=== PATIENT | male | born 1935 | race Caucasian/White ===

== ENCOUNTER 2017-03-08 13:04 | Day surgery (SDC) | payer OTHER, MEDICARE ==
[~2017-03-08] VITALS: Ht 176.5 cm; Wt 77.1 kg
[~2017-03-08 13:04] MED LIST: ALEN70TA2 PO; ASPI-435 PO; ASTRAGALUS PO; CIPROFLOXACIN / D5W 400 MG IV SCH; COEN1CAP17 PO; Calcium PO; GABA-113 PO; GLUCTAB54 PO; LACT12CR18 TOP; LACTATED RINGER'S 1000ML 1,000 ML IV SCH; LATA0.009 OPB; Magnesium PO; NAPR-943 PO; PANT40TA PO; Potassium PO; Saw Palmetto PO; Turmeric PO; Vitamin D PO; [UNRECOGNIZED DRUG - CODE] PO; [UNRECOGNIZED DRUG - OTHER]; ambien PO; centrum silver PO; diovan PO; fish oil PO; melatonin PO; nitroglycerin PO
[2017-03-08 14:00] VITALS: BP 148/66; PULSE 85; TEMP 36.4; O2SAT 97; Ht 176.5 cm; Wt 77.1 kg
[2017-03-08] MEDS ORDERED: SULF1TAB92 PO (14:00)
[2017-03-08] MEDS ORDERED: LEVO500T19 PO (14:00)
[2017-03-08] MEDS ORDERED: LIDOCAINE HCL 2% 2 ML VIAL (20MG/ML) ONE (14:44)
[2017-03-08] MEDS ORDERED: FENTANYL CITRATE INJ 50 MCG/1 ML 2 ML VIAL ONE (14:44)
[2017-03-08] MEDS ORDERED: PROPOFOL IV EMULSION 10 MG/ML 20 ML VIAL IV ONE (14:44)
[2017-03-08] MEDS ORDERED: DEXAMETHASONE SOD INJ 4 MG/ML VIAL ONE (14:46)
[2017-03-08] MEDS ORDERED: ONDANSETRON INJ 2 MG/ML 2 ML VIAL ONE (14:46)
--- NOTE | 2017-03-08 15:12 | History & Physical Bridge Note ---
H&P Re-Evaluation Bridge Note: I have examined the patient, reviewed the History & Physical and in the interval since the performance of the History & Physical I have noted the following changes of clinical significance: No changes noted
--- NOTE | 2017-03-08 15:22 | History and Physical ---
History & Physical Date Mar 08, 2017. 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 nonhealing foot ulcers His been maintained on antibiotics History of Present Illness The patient is a 81 year old male with complaints of Past Medical/Surgical History Medical Problems: (1) Melanoma (2) [place] cell cancer (3) Transitional cell carcinoma of bladder Additional History Hepatic Disease: No Endocrine Disorder: No Kidney Disease: No Hypertension: Yes Heart Disease: Yes Bleeding Tendencies: No Infectious Diseases: Yes Allergies Coded Allergies: Tetracycline (Verified Allergy, Unknown, Rash, 03/08/17) Uncoded Allergies: CEPHALSPORINS (Allergy, Mild, Rash, 11/28/13) Home Medications Scheduled Alendronate Sodium (Fosamax), 70 MG PO WK Aspirin (Aspirin 81), 1 TAB PO DAILY Coenzyme Q10 (Ubidecarenone) (Co Q 10), 1 TAB PO DAILY Gabapentin (Neurontin), 600 MG PO TID Xrrimjqtuot-Lqcuosvracq-Xqqzbj (Glucosamine Chondroitin M), 2 TAB PO DAILY Latanoprost 0.005% Oph (Xalatan 0.005% Oph), 1 DROP OPB DAILY Levofloxacin (Levaquin), 1 TAB PO DAILY Naproxen-Esomeprazole Magnesiu (Vimovo), 1 TAB PO DAILY Trimethoprim/Sulfamethoxazole (Bactrim 400MG/80MG), 1 TAB PO Q12H [Astragalus], 500 MG PO DAILY [Magnesium], 133 MG PO DAILY [Potassium], 90 MG PO DAILY [Saw [place]], 320 MG PO DAILY [Turmeric], 450 MG PO DAILY [Vitamin D], 5,000 INTER.UNIT PO DAILY [centrum silver], 1 TAB PO DAILY [diovan], 0.5 TAB PO DAILY [fish oil], 2,000 MG PO DAILY [melatonin], 10 MG PO HS Scheduled PRN Clorazepate Dipotassium (Tranxene T), 3.75 MG PO 1-2 tabs q8h PRN for Anxiety [nitroglycerin], 0.4 MG PO for Chest Pain Physical Examination Skin: warm/dry, + pertinent finding (completely ecchymotic forearms) Eyes: normal inspection, EOMI, sclerae normal Head: normocephalic, atraumatic Neck: supple, no adenopathy, trachea midline Respiratory/Chest: lungs clear, normal breath sounds, no respiratory distress Cardiovascular: regular rate, rhythm, no edema, no murmur Back: normal inspection Extremities: normal inspection, normal range of motion Neurologic/Psych: no motor/sensory deficits, alert, normal reflexes, oriented x 3 Plan of Treatment Cystoscopy, possible TURBT, possible fulguration of bleeding vessels
[2017-03-08] MEDS ORDERED: HYDR-5688 PO (15:37)
[2017-03-08] MEDS ORDERED: [UNRECOGNIZED DRUG - CODE] PO (15:37)
[2017-03-08] MEDS ORDERED: EpHEDrine SULFATE INJ 50 MG/ML AMP IV PRN (15:45)
[2017-03-08] MEDS ORDERED: ATROPINE SULFATE 0.1 MG/ML 5ML SYR IV PRN (15:45)
[2017-03-08] MEDS ORDERED: FENTANYL CITRATE INJ 50 MCG/1 ML 2 ML VIAL IV PRN (15:45)
[2017-03-08] MEDS ORDERED: ONDANSETRON INJ 2 MG/ML 2 ML VIAL IV PRN (15:45)
[2017-03-08] MEDS ORDERED: EpHEDrine SULFATE INJ 50 MG/ML AMP ONE (15:48)
[2017-03-08] MEDS ORDERED: NEOSTIGMINE METHYLSULFATE 5 MG/5 ML SYR ONE (15:48)
[2017-03-08] MEDS ORDERED: GLYCOPYRROLATE INJ 0.2 MG/ML VIAL ONE (15:48)
[2017-03-08] MEDS ORDERED: ROCURONIUM BROMIDE 10 MG/ML 5 ML VIAL IV ONE (15:48)
--- NOTE | 2017-03-08 16:12 | [facility] Operative Report ---
Operative Report Operative Date Mar 08, 2017. Pre-Operative Diagnosis Hematuria, History of Bladder Cancer Post-Operative Diagnosis Bladder Cancer Recurrence Procedure(s) Performed Transurethral Resection Bladder Tumor Surgeon Dr. Sierra Estimated Blood Loss 5ml Findings None papillary bladder tumor around the bladder neck and Compazine area for proximally 6:00 to 2:00. Some adherent clot on the lateral aspect Specimens A. Bladder Tumor Drains none Anesthesia Gen. Complication(s) None Disposition Recovery Room / PACU (stable) Indications Gross hematuria; history of bladder cancer; recent scan suggesting a 2 cm bladder tumor Description of Procedure Wade Smith was identified in the preoperative holding area, appropriate informed consents were reviewed and completed, and the patient was transported to the operating suite. Upon arrival he received appropriate preoperative antibiotics in the form of ciprofloxacin. Adequate general anesthesia was achieved, and the patient was placed in dorsal lithotomy position where he was sterilely prepped and draped in standard fashion. 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 I was able to gently dilate this with a hemostat. Scope subsequent passed without difficulty. Full inspection of the urethra revealed no evidence of stricture disease. Prostate was small in size. Inspection of the bladder revealed a clot within the dependent portion of the bladder this was easily irrigated out. I performed a full inspection with both 30 and 70 lenses. With 70 lenses very 0 identified papillary tumors arising from the bladder neck encompassing approximately one third of the circumference the bladder neck extending from 7:00p-6:00 to approximately 2:00. There was adherent clot on the most lateral aspect of this. I expect that this clot was seen on the CT scan that suggested tumor, as remaining portion of the tumor was not particularly protuberant into the bladder. Following my inspection I exchanged the visual obturator for resecting loop and sequentially resected the tumor beginning at the lateral most aspect concluding with the posterior aspect. After collecting all of the specimen passing off the table, I exchanged with 30 lens for 70 lens and reinspected. A third an adequate resection at that time with no persistent tumor remaining. I confirmed excellent hemostasis before withdrawing the scope and emptying the bladder. Patient was extubated and taken to the PACU in stable condition. There were no complications. I attest to the content of the Intraoperative Record and any orders documented therein. Any exceptions are noted below.
[2017-03-08] MEDS ORDERED: SODIUM CHLORIDE 0.9% 1000ML 1,000 ML IV SCH (16:14)
--- NOTE | 2017-03-08 16:14 | Discharge Instructions ---
Discharge Instructions Date of Service Mar 08, 2017. Admission Reason for Admission: Hematuria, Bladder Cancer Discharge Discharge Diagnosis / Problem: Bladder cancer, hematuria Discharge Goals Goal(s): Decrease discomfort, Improve function, Increase independence, Improve disease control, Prevent Disease Progression Activity Recommendations Activity Limitations: resume your previous activity Lifting Limitations: none Exercise/Sports Limitations: none May Resume Sexual Activity: when tolerated Shower/Bathe: no limitations Driving or Machine Use: resume 1 day after discharge . Instructions / Follow-Up Instructions / Follow-Up Dr. Sierra's office will contact you to schedule your follow up. Discharge Diet Recommended Diet: Regular Diet Procedures Procedures Performed: Transurethral Resection Bladder Tumor Pending Studies Studies pending at discharge: no Medical Emergencies . Who to Call and When: Medical Emergencies: If at any time you feel your situation is an emergency, please call 911 immediately. . Non-Emergent Contact Non-Emergency issues call your: Urologist Call Non-Emergent contact if: you have a fever, temperature is above 101.5, your pain is not controlled, your pain is worsening . . "Provider Documentation" section prepared by Nathanael Faye. . VTE Core Measure Inpt VTE Proph given/why not?: Treatment not indicated
[2017-03-08] MEDS ORDERED: ACETAMINOPHEN 325 MG TAB PO PRN (16:15)
[2017-03-08] MEDS ORDERED: HYDROCODONE/ACETAMOPHEN 5/325MG TAB PO PRN ×2 (16:15)
[2017-03-08] MEDS ORDERED: PHENAZOPYRIDINE HCL 200 MG TAB PO PRN (16:15)
--- NOTE | 2017-03-08 16:40 | Anesthesiology Progress Note ---
Anesthesia Post Op Note Date & Time Mar 08, 2017 at 16:40 Vital Signs Pain Intensity: 0 Vital Signs Past 12 Hours Date Time Temp Pulse Resp B/P (MAP) Pulse Ox O2 Delivery O2 Flow Rate FiO2 03/08/17 16:35 70 18 150/76 97 Room Air 03/08/17 16:25 69 14 145/71 100 Oxymask 8 03/08/17 16:15 76 17 149/73 100 Oxymask 03/08/17 16:08 36.4 74 17 139/64 100 Oxymask 10 03/08/17 14:00 36.4 85 20 148/66 (93) 97 Room Air Notes Mental Status: alert / awake / arousable, participated in evaluation Pt Amnestic to Procedure: Yes Nausea / Vomiting: adequately controlled Pain: adequately controlled Airway Patency, RR, SpO2: stable & adequate BP & HR: stable & adequate Hydration State: stable & adequate Anesthetic Complications: no major complications apparent
[2017-03-08 16:55] VITALS: BP 165/71; PULSE 65; TEMP 36.3; O2SAT 98
[2017-03-08 17:25] VITALS: BP 144/71; PULSE 68; TEMP 36.3; O2SAT 98
== END 2017-03-08 17:39 | disposition home or self-care (01) ==
LOC: C.ACU 13:04
PROVIDERS: ATTEND Urology
DX: C67.5 Malignant neoplasm of bladder neck (principal); R31.9 Hematuria, unspecified

== ENCOUNTER 2019-05-17 08:35 | Observation (INO) ==
--- NOTE | 2019-05-15 16:07 | PAT Medication Instructions ---
Medication Instructions Date of Service May 15, 2019 Home Medications alendronate 70 mg PO WK aspirin 81 mg PO QAM cholecalciferol (vitamin D3) [Vitamin D3] 5,000 unit PO QAM coenzyme Q10 [CoQ-10] 100 mg PO QAM gabapentin [Neurontin] 300 mg PO TID latanoprost 1 drp OPB HS melatonin 10 mg PO HS mbsbaweb-yqd-KJ-lycopen-lutein [Centrum Silver] 1 tab PO DAILY naproxen 500 mg PO QAM omega 8-zuo-lcy-fish oil [Fish Oil] 1 cap PO BID saw palmetto 160 mg PO BID turmeric-turmeric root extract 1 cap PO QAM valsartan-hydrochlorothiazide [Diovan HCT] 0.5 tab PO QAM ASK your surgeon for instructions naproxen 500 mg PO QAM ASK your prescriber and surgeon aspirin 81 mg PO QAM alendronate 70 mg PO WK STOP taking 2 weeks before surgery (or as soon as possible if surgery is within 2 weeks) coenzyme Q10 [CoQ-10] 100 mg PO QAM omega 0-fxw-zjb-fish oil [Fish Oil] 1 cap PO BID saw palmetto 160 mg PO BID turmeric-turmeric root extract 1 cap PO QAM DO NOT take the morning of surgery cholecalciferol (vitamin D3) [Vitamin D3] 5,000 unit PO QAM [Centrum Silver] 1 tab PO DAILY valsartan-hydrochlorothiazide [Diovan HCT] 0.5 tab PO QAM Take morning of surgery With a small sip of water, OTHERWISE NOTHING TO EAT OR DRINK AFTER MIDNIGHT: gabapentin [Neurontin] 300 mg PO TID Take evening before surgery gabapentin [Neurontin] 300 mg PO TID latanoprost 1 drp OPB HS melatonin 10 mg PO HS Other Notes If you have any questions please call us at [phone] or [phone] or [phone] or [phone]
--- NOTE | 2019-05-16 12:46 | Anesthesiology Consultation ---
Date of Service May 16, 2019 Assessment & Plan (1) Encounter for pre-operative examination: - PCP: 05/02/19: recommend continued followup with wound care for MRSA/wound care. Discussed ETOH cessation or 1 drink nightly. "Patient is cleared for upcom ing surgery." - Hyponatremia/hypokalemia during recent [facility] ER visit. Recheck 05/16/19 with slight improvement with Na [address] Nance made aware. - ASA instructions per surgeon/prescriber (per patient, not advised to discontinue prior to surgery and surgery scheduled tomorrow 05/17/19*) Chart Review Chart Review: Acceptable Risk for Surgery (pending evaluation AM DOS) and Patient seen in Pre Admission Testing Teaching & Discussion Pre-Anesthesia Teaching/Discussion Notes: Instructed NPO after midnight before surgery,except medications with 15 cc of water. Medication instructions provided according to the PAT guidelines. History Surgery Operation Date: 05/17/19 10:25 Proposed Procedures p Transurethral Resection Bladder Tumor, With or Without Multiple Cup Biopsies of the Bladder - Nathanael Sierra MD Height/Weight Height: 5 ft 9.5 in Weight: 68.5 kg Allergies Allergy/AdvReac Type Severity Reaction Status Date / Time Cephalosporins Allergy Mild RASH Verified 05/14/19 09:47 tetracycline Allergy Mild Rash Verified 05/14/19 09:47 Medications Home Medications Medication Instructions Recorded Confirmed Last Taken alendronate 70 mg PO WK 05/10/19 05/14/19 Unknown aspirin 81 mg PO QAM 05/10/19 05/14/19 05/10/19 cholecalciferol (vitamin D3) 5,000 unit PO QAM 05/10/19 05/14/19 05/10/19 [Vitamin D3] coenzyme Q10 [CoQ-10] 100 mg PO QAM 05/10/19 05/14/19 05/10/19 gabapentin [Neurontin] 300 mg PO TID 05/10/19 05/14/19 05/10/19 latanoprost 1 drp OPB HS 05/10/19 05/14/19 05/09/19 melatonin 10 mg PO HS 05/10/19 05/14/19 05/09/19 shfmrtkr-bjn-VL-lycopen-lutein 1 tab PO DAILY 05/10/19 05/14/19 05/10/19 [Centrum Silver] naproxen 500 mg PO QAM 05/10/19 05/14/19 05/10/19 omega 6-tdg-zrm-fish oil [Fish Oil] 1 cap PO BID 05/10/19 05/14/19 05/10/19 saw palmetto 160 mg PO BID 05/10/19 05/14/19 05/10/19 turmeric-turmeric root extract 1 cap PO QAM 05/10/19 05/14/19 05/10/19 valsartan-hydrochlorothiazide 0.5 tab PO QAM 05/10/19 05/14/19 05/10/19 [Diovan HCT] Past Medical History Medical History HTN (hypertension) Melanoma Transitional cell carcinoma of bladder (~04/10/09) Anemia chronic; no known hx of blood transfusions per patient BPH (benign prostatic hyperplasia) Chronic back pain GERD (gastroesophageal reflux disease) controlled [place] (hard of hearing) Hematuria Osteoarthritis Peripheral neuropathy Risk for falls 2/2 chronic balance issues Transient ischemic attack (TIA) 2019 Wounds, multiple multiple wounds related to mechanical falls 2/2 poor balance- following with wound clinic, + MRSA LUE wound (infection control made aware) Exercise / Class Metabolic Activity III < 4 Walking/Shop/Light housework (uses walker PRN) Past Family History Family History Other Family history non-contributory Past Surgical History Surgical History History of biopsy of bladder History of bladder surgery TURBT: 03/08/17: LMA# 5.0 at [facility] History of cataract surgery RT/LEFT History of colonoscopy History of cystoscopy MULTIPLE History of esophagogastroduodenoscopy (EGD) History of tonsillectomy and adenoidectomy History of tooth extraction Hx of knee surgery LEFT Past Anesthesia History No Hx of Anesthesia Complications and No Family Hx of Anesthesia Complications History of PONV No Hx of PONV and No Hx of Motion Sickness Social History Smoking Status: Former smoker tobacco type: cigarettes Do You Dip or Chew Tobacco: No Smoking End Date: QUIT 40 YEARS AGO Hx Alcohol Use: Yes Alcohol type: beer, wine and hard liquor alcohol intake frequency: 3 or more drinks per day Alcohol Intake Frequency Comment: 2-3 DRINKS (cocktail/mixed drink) DAILY BEFORE DINNER Hx Substance Use: No substance use type: does not use Review of Systems Reflux controlled. Patient denies chest pain, shortness of breath, cough, wheezing, palpitations. Physical Exam Vital Signs VITALS BP 137/67 P 65 TEMP 97.7 SP02 100%RA RESP 18 PHYSICAL Decreased cervical extension due to cervicalgia/arthritis. Full TMJ range of motion. TMD 3.5 finger breaths Mallampati Score 4 Dentition: partial upper/lower dentures Lungs: clear throughout to auscultation Cardiac: regular rate and rhythm, no murmurs noted Spine: normal Carotid arteries: negative bruit Extremities: no edema Testing Laboratory Results 05/16/19 14:25 05/12/19 WBC 5.70 H/H 9.4/27.7 PLT 196 05/10/19 UA 2+ bacteria (urine culture with no growth) Electrocardiogram Date: 05/16/19 NSR at 67bpm. Low voltage QRS. *unconfirmed report* Chest X-Ray Date: 05/16/19 Findings: + NAD
[2019-05-16 14:57] LABS: BUN Creatinine Ratio 15.3 (10-20); Calcium 8.6 mg/dl (8.5-10.1); Creatinine Clr Calc Pharmacy 49.4 ml/min; Est GFR (African American) 73.8; Est GFR (Non-African American) 63.7; Potassium 3.2 mmol/L (3.5-5.1)
--- NOTE | 2019-05-16 15:01 | XRay Report ---
XR chest Pre-admission PA/Lat CLINICAL HISTORY: 83 years-old Male presenting with preoperative assessment. TECHNIQUE: PA and lateral views of the chest were obtained. COMPARISON: PET/CT from 01/27/2015. FINDINGS: Cardiomediastinal silhouette normal. Lungs and pleural spaces clear. Prominent skin folds over the le ft lung. Degenerative changes of the thoracic spine. Partially visualized lumbar fusion hardware. Upp er abdomen normal. IMPRESSION: 1. No acute cardiopulmonary disease. Electronically signed by: Ben Siddiqi M.D. 05/16/2019 3:00 PM
[~2019-05-17 08:35] MED LIST changes: -ALEN70TA2 PO; -ASPI-435 PO; -ASTRAGALUS PO; -CIPROFLOXACIN / D5W 400 MG IV SCH; +CIPROFLOXACIN 400 MG/200 ML BAG IV SCH; -COEN1CAP17 PO; -Calcium PO; -GABA-113 PO; -GLUCTAB54 PO; -LACT12CR18 TOP; -LACTATED RINGER'S 1000ML 1,000 ML IV SCH; -LATA0.009 OPB; +LR 15ML/HR IV SCH; -Magnesium PO; -NAPR-943 PO; -PANT40TA PO; -Potassium PO; -Saw Palmetto PO; -Turmeric PO; -Vitamin D PO; -[UNRECOGNIZED DRUG - CODE] PO; -[UNRECOGNIZED DRUG - OTHER]; -ambien PO; +cefTRIAXone SODIUM 1,000 MG in DEXTROSE 5% 50 ML IV SCH; -centrum silver PO; -diovan PO; -fish oil PO; -melatonin PO; -nitroglycerin PO
[2019-05-17] MEDS ORDERED: CIPROFLOXACIN 400MG / 200ML D5W IV ONE (09:59)
--- NOTE | 2019-05-17 10:01 | History & Physical Bridge Note ---
Date of Service May 17, 2019 History & Physical Bridge Note I have examined the patient, reviewed the History & Physical and in the interval since the performance of the History & Physical I have noted the following changes of clinical significance: no changes noted
[2019-05-17] MEDS ORDERED: PROPOFOL IV EMULSION 10 MG/ML 20 ML VIAL IV ONE (10:27)
[2019-05-17] MEDS ORDERED: LIDOCAINE HCL 2% 2 ML VIAL/AMP(20MG/ML) INFIL ONE (10:27)
[2019-05-17] MEDS ORDERED: fentaNYL citrate 100 MCG/2 ML VIAL ONE ×2 (10:28→11:22)
[2019-05-17] MEDS ORDERED: ONDANSETRON INJ 2 MG/ML 2 ML VIAL IV PRN ×2 (10:37→13:27)
[2019-05-17] MEDS ORDERED: ATROPINE SULFATE 0.1 MG/ML 10ML SYR IV PRN (10:37)
[2019-05-17] MEDS ORDERED: ePHEDrine sulfate 50 MG/ML AMP IV PRN (10:37)
[2019-05-17] MEDS ORDERED: ONDANSETRON INJ 2 MG/ML 2 ML VIAL ONE (10:45)
[2019-05-17] MEDS: fentaNYL citrate 100 MCG/2 ML VIAL IV PRN ×3 (12:23→12:36)
--- NOTE | 2019-05-17 12:37 | Operative Report ---
PG Post Operative Report Pre & Post Diagnosis Operation Date: 05/17/19 10:25 Pre-Op Diagnosis: Bladder Tumors Post-Op Diagnosis: Bladder Tumors I identified the patient and participated in the time-out.: Yes Procedure Operation Date: 05/17/19 10:25 Actual Procedures p Transurethral Resection Bladder Tumor, Meatal Dilation(Not Applicable) - Nathanael Sierra MD Surgeon Chele Sierra MD Clay Worker none Estimated Blood Loss 10 Findings Consistent with Post-Op Diagnosis Specimens Bladder tumor Description of Procedure The patient was identified in the preopertive holding area, appropriate informed consents were reviewed and completed and the patient was transferred to the operative suite. Upon arrival, appropriate antibiotics and anesthesia were administered and the patient was placed in dorsal lithotomy position and prepped and draped in sterile fashion. To begin the case I attempted to pass a 27 Belgian resectoscope but his meatus would not accommodate this. I then performed a meatal dilation utilizing male urethral sounds to 28 Belgian. The scope subsequently passed without difficulty and inspection of his urethra revealed no abnormalities. He has moderately enlarged prostate. There was a notable tumor arising from the bladder neck and obstructing the lumen of the bladder neck upon entering the bladder. There was also clot within the bladder and significant blood. After irrigating the clot out of the bladder and clearing the urine, I was able to fully inspect. He has a very large tumor arising from the left anterior aspect of the bladder neck and obstructing the bladder neck itself. This extends onto the left lateral wall, covering the left UO and a significant portion of the left bladder. He additionally has several isolated tumors on the right side of his bladder and posterior wall. Following this inspection, I passed a resecting elementchoosing a loop electrode. I subsequently resected all visible tumor. The tumor arising from the left anterior lateral wall was resected flush to the normal contour of the bladder wall, however I do not suspect I have entirely resected this tumor. There is still necrotic appearing tumor at the base of the resection, but given the depth of resection I felt that it was unsafe to extend this resection further. In total, 8 to 10 cm of bladder surface was covered with tumor and treated today. I obtained meticulous hemostasis and irrigated all bladder tumor chips out prior to concluding the case. I did place a 22 Belgian Lau catheter and inflate the balloon with 10 cc of sterile water. He was subsequently extubated and taken to the PACU in stable condition. There were no complications. I attest to the content of the Intraoperative Record and any orders documented therein. Any exceptions are noted below.
--- NOTE | 2019-05-17 12:43 | Anesthesiology Progress Note ---
Date of Service May 17, 2019 Anesthesia Post Procedure Vital Signs Vital Signs: Temp Pulse Pulse Resp BP BP Pulse Ox 05/17/19 12:40 73 22 127/56 L 100 05/17/19 12:30 77 17 114/63 100 05/17/19 12:20 80 19 141/61 H 100 05/17/19 12:10 83 12 147/77 H 100 05/17/19 12:04 97.2 F L 79 16 135/73 100 05/17/19 09:23 98.2 F 63 16 132/71 99 Pain Intensity Neck: Pain Intensity: 2 Penis: Pain Intensity: 5 Transfer of Care Handoff Completed per policy Notes Mental Status: alert / awake / arousable and participated in evaluation Patient Amnestic to Procedure: Yes Nausea / Vomiting: adequately controlled Pain: adequately controlled Airway Patency, RR, SpO2: stable & adequate BP & HR: stable & adequate Hydration State: stable & adequate Anesthetic Complications: no major complications apparent and Pt Satisfied with anesthetic care
[2019-05-17] MEDS ORDERED: HYDROCODONE/ACETAMOPHEN 5/325MG TAB PO PRN (13:27)
[2019-05-17] MEDS ORDERED: ACETAMINOPHEN 325 MG TAB PO PRN (13:27)
[2019-05-17 13:53] LABS: Basophils # (auto) 0.02 K/uL (0-0.2); Basophils % (auto) 0.3 %; Eosinophils # (auto) 0.26 K/uL (0-0.5); Eosinophils % (auto) 4.3 %; Hematocrit (blood only) 28.9 % (42-52); Hemoglobin 10.4 g/dL (14.0-18.0); Immature Granulocytes # (auto) 0.02 K/uL (0.00-0.02); Immature Granulocytes % (auto) 0.3 %; Lymphocytes # (auto) 0.58 K/uL (1.2-3.4); Lymphocytes % (auto) 9.5 %; Mean Corpuscular Hemoglobin 35.5 pg (25-34); Mean Corpuscular Volume 98.6 fL (80-100); Mean Platelet Volume 8.4 fL (7.4-10.4); Monocytes # (auto) 0.37 K/uL (0.11-0.59); Monocytes % (auto) 6.1 %; Neutrophils # (auto) 4.85 K/uL (1.4-6.5); Neutrophils % (auto) 79.5 %; Platelet Count 189 K/uL (130-400); RDW Coefficient of Variation 13.8 % (11.5-14.5); RDW Standard Deviation 49.5 fL (36.4-46.3); Red Blood Count 2.93 M/uL (4.7-6.1)
[2019-05-17] MEDS: LACTATED RINGER'S 1,000 ML IV SCH (13:57)
[2019-05-17] MEDS: HYDROCODONE/ACETAMOPHEN 5/325MG TAB PO PRN ×2 (13:59→22:35)
[2019-05-17 14:13] LABS: BUN Creatinine Ratio 14.5 (10-20); Calcium 8.2 mg/dl (8.5-10.1); Creatinine Clr Calc Pharmacy 49.7 ml/min; Est GFR (African American) 74.7; Est GFR (Non-African American) 64.4
[2019-05-17] MEDS: GABAPENTIN 300 MG CAP PO SCH ×2 (14:38→22:35)
[2019-05-17 15:11] VITALS: PULSE 75; O2SAT 99
[2019-05-17] MEDS ORDERED: IOVERSOL 100ml IV PRN (15:51)
--- NOTE | 2019-05-17 16:04 | CT Scan Report ---
CT abd pelvis IV con only CLINICAL HISTORY: Bladder cancer - r/o met disease COMPARISON STUDY: PET CT scan performed January 2015 TECHNIQUE: The patient was scanned in a dynamic helical fashion during intravenous administration of 95 cc of Optiray 320. A dose lowering technique was utilized adhering to the principles of ALARA. CT DOSE: 715.53 mGycm FINDINGS: Lower chest: There are left basilar airspace opacities, likely atelectatic. Liver: There is a 4 mm right lobe hypodensity, similar to the preceding study and likely representing a cyst. Gallbladder: Cholelithiasis Spleen: Normal in size and attenuation. Pancreas: Unremarkable. Adrenal glands: Unremarkable. Kidneys: There are multiple bilateral hypodense renal lesions consistent with cysts. The largest on t he left which measures 39 mm minimally complex containing thin calcific septations inferiorly. Bowel: There are no transition zones to indicate bowel obstruction. The appendix appears normal. Ther e is colonic diverticulosis. No acute peridiverticular inflammatory changes are visualized. Peritoneum: There is no intraperitoneal free air or abdominal ascites. Vasculature: The abdominal aorta is normal in course and caliber. Adenopathy: None. Pelvic viscera: There is a joint Lau catheter. The prostate is mildly enlarged. There is a thick wa lled bladder. Skeletal structures: There are postsurgical changes present within the spine. There are scattered scl erotic lesions, similar to the prior 2014 study, and therefore likely representing benign bone island s IMPRESSION: 1. No evidence of metastatic disease 2. No evidence of bowel obstruction. No evidence of free air 3. Cholelithiasis 4. Bladder wall thickening Electronically signed by: Hira Abbott M.D. 05/17/2019 4:02 PM
[2019-05-17] MEDS: [UNRECOGNIZED DRUG - REMARK] SCH (17:30)
[2019-05-17] MEDS ORDERED: LATANOPROST 0.005% OP SOLN 2.5 ML BTL OPB SCH (21:00)
[2019-05-18] MEDS: [UNRECOGNIZED DRUG - REMARK] SCH ×2 (00:09→07:38)
[2019-05-18] MEDS: CIPROFLOXACIN 500 MG TAB PO SCH ×2 (00:41→07:54)
[2019-05-18] MEDS: LACTATED RINGER'S 1,000 ML IV SCH (04:11)
[2019-05-18] MEDS: HYDROCODONE/ACETAMOPHEN 5/325MG TAB PO PRN (05:35)
[2019-05-18 06:13] LABS: Basophils # (auto) 0.02 K/uL (0-0.2); Basophils % (auto) 0.2 %; Eosinophils # (auto) 0.46 K/uL (0-0.5); Eosinophils % (auto) 5.3 %; Hematocrit (blood only) 24.9 % (42-52); Immature Granulocytes # (auto) 0.01 K/uL (0.00-0.02); Immature Granulocytes % (auto) 0.1 %; Lymphocytes # (auto) 0.72 K/uL (1.2-3.4); Lymphocytes % (auto) 8.3 %; Mean Corpuscular Hemoglobin 36.3 pg (25-34); Mean Corpuscular Hgb Conc 36.1 g/dL (32-36); Mean Corpuscular Volume 100.4 fL (80-100); Mean Platelet Volume 8.2 fL (7.4-10.4); Monocytes # (auto) 0.46 K/uL (0.11-0.59); Monocytes % (auto) 5.3 %; Neutrophils # (auto) 6.99 K/uL (1.4-6.5); Neutrophils % (auto) 80.8 %; Platelet Count 150 K/uL (130-400); RDW Coefficient of Variation 14.1 % (11.5-14.5); RDW Standard Deviation 51.8 fL (36.4-46.3); Red Blood Count 2.48 M/uL (4.7-6.1); White Blood Count 8.66 K/uL (4.8-10.8)
[2019-05-18 06:53] LABS: BUN Creatinine Ratio 13.7 (10-20); Calcium 7.7 mg/dl (8.5-10.1); Creatinine Clr Calc Pharmacy 54.3 ml/min; Est GFR (African American) 83.2; Est GFR (Non-African American) 71.8; Potassium 3.1 mmol/L (3.5-5.1)
--- NOTE | 2019-05-18 08:18 | Urology Progress Note ---
Date of Service May 18, 2019 Assessment & Plan (1) Bladder cancer: 83yo F POD #1 s/p TURBT with Dr. Sierra Pt progressing as anticipated. Continue regular diet, ambulate as tolerated. Use of IS reviewed. Will continue to monitor hematuria and BP. Subjective 83yo M POD #[address] Sierra Denies pain, slept well through the night. No nausea/vomiting. States he has not been OOB yet. Black draining spear red with small clots- has not required irrigation. H/H with mild drop as expected. BP soft, Valsartan held this AM. Wound care at bedside yesterday to dress skin tears after pt suffered fall day before procedure. Review of Systems Review of Systems: All systems reviewed & are unremarkable except as noted in HPI & below Physical Exam Constitutional: no acute distress and not ill appearing Eyes: no nystagmus ENMT: Ears: no hearing impairment Neck: trachea midline Respiratory: no respiratory distress and no cough Cardiovascular: Vessels: no JVD Chest (Breasts): Chest: normal inspection of chest Gastrointestinal (Abdomen): Inspection/Auscultation: abdomen not distended and no abdominal edema Percussion/Palpation: abdomen soft; abdomen nontender Musculoskeletal: Head/Neck/Chest: normocephalic and head atraumatic Skin: no rashes, warm and dry Neurologic: awake; not confused and not obtunded Psychiatric: Orientation: alert and oriented x 3 Eye Contact: good eye contact Affect: no depressed affect Genitourinary: no CVA tenderness black draining clear yellow Lymphatic: no lymphadenopathy and no lymphedema Results & Data Vital Signs (Past 12 Hours) Vital Signs Temp Pulse Pulse Resp BP Pulse Ox 05/18/19 07:50 36.4 C L 75 15 102/57 L 99 05/18/19 02:59 36.5 C 75 16 111/65 99 05/17/19 23:03 37.0 C 75 16 96/54 L 99 PG Care Time/CCT Total # of Minutes Spent Total Time Spent with Patient: Total time spent is greater than 50% in coordination of care (as documented) at patient's floor/unit and/or counseling patient: (1) Bladder cancer Bladder location: unspecified site Qualified Code(s): C67.9 - Malignant neoplasm of bladder, unspecified
[2019-05-18] MEDS: GABAPENTIN 300 MG CAP PO SCH ×2 (08:40→13:05)
[2019-05-18] MEDS ORDERED: VALSARTAN 80 MG TAB PO SCH (09:00)
[2019-05-18] MEDS ORDERED: hydroCHLOROthiazide 25 MG TAB PO SCH (09:00)
--- NOTE | 2019-05-18 11:34 | Urology Progress Note ---
Date of Service May 18, 2019 Assessment & Plan (1) Bladder cancer: Pt remains to be very drowsy, arousable but quickly falls back to sleep without verbal stimulation. PT/OT ordered per case management recommendations. Pt may need to consider discharge to [facility]. Await evaluation. Please hold all antihypertensives due to soft BPs. Will keep patient overnight tonight. Dr. Sierra to see patient later this afternoon. Supervising Physician Co-Signing Physician Notes Doing ok today still with some confusion urine bloody Lengthy discussion with the patient's son as well as case management - his home situation is sub-optimal, but prolonged hospitalization is likewise not without risk given EtOH use, etc - we have settled on D/c home this afternoon - son and grandson will be with him - home care arranged for tomorrow - removal of black catheter now - this plan has been communicated to CM as well Subjective Rechecked pt later this AM. Sleeping in chair next to bed, easily arousable but then quickly falls back asleep. Does not appear that he has eaten any of his breakfast. Black draining spear red, adequate amounts. Pt denies any pain or nausea. Physical Exam Physical Exam: drowsy black draining spear red RRR Results & Data Vital Signs (Past 12 Hours) Vital Signs Temp Pulse Pulse Resp BP Pulse Ox 05/18/19 07:50 36.4 C L 75 15 102/57 L 99 05/18/19 02:59 36.5 C 75 16 111/65 99 PG Care Time/CCT Total # of Minutes Spent Total Time Spent with Patient: Total time spent is greater than 50% in coordination of care (as documented) at patient's floor/unit and/or counseling patient: (1) Bladder cancer Bladder location: unspecified site Qualified Code(s): C67.9 - Malignant neoplasm of bladder, unspecified
[2019-05-18] MEDS ORDERED: LORazepam 1 MG/2 ML VIAL IV PRN ×2 (12:09→13:08)
[2019-05-18] MEDS ORDERED: Nursing to Pharmacy Communication ONE ×2 (12:11→14:01)
[2019-05-18] MEDS ORDERED: LORazepam 1 MG TAB PO PRN ×2 (12:20→13:08)
[2019-05-18] MEDS ORDERED: MULTI-VITAMIN INFUSION 10 ML, THIAMINE HCL 100 MG, FOLIC ACID 1 MG in SODIUM CHLORIDE 0... IV ONE (12:45)
[2019-05-18] MEDS ORDERED: GABAPENTIN 300 MG CAP PO ONE (13:15)
--- NOTE | 2019-05-18 13:21 | Hospitalist Consultation ---
Date of Consultation May 18, 2019 Assessment & Plan (1) Confusion: Apparently this was a concern earlier today, but no confusion during my discussion or for nursing Possibly with poor anesthesia clearance vs groggy due to being awakened Now WNL PT/OT pending HHN is being set up as well (2) Bladder cancer: s/p TURP 05/[address] Sierra Hb 9.0 (3) Hypokalemia: Noted during admission Replace and monitor (4) HTN (hypertension): BP low normal, monitor (5) Alcohol use: As noted Pt takes gabapentin 300mg TID, does not miss dosing per pt D/W pharmacy and they feel that pt would not need any sort of large loading dose given baseline use, but did rec for an additional 300mg x1 Banana bag started earlier AM thiamine, folate AWSS protocol Per urology, family stated that pt does not do well in hospital in the past (6) DVT prophylaxis: As per urology History of Present Illness Attending Physician: Chele Sierra MD History of Present Illness 83 y/o M who was admitted on 05/18 s/p TURP with Dr. Sierra. Consult was called for pt being confused this AM. Per CHAIRMAN AND [employer]IE[employer] EXECUTIVE OFFICER notes, pt was drowsy this AM and difficulty to arouse. He did speak with her once aroused but fell back asleep quickly. His BP is also low. Per nursing, there is concern from urology about pt's hx of alcohol use. Pt states he is doing well post-op. Tolerating PO without issue. Pt denies fever, SOB, chest pain, abd pain, n/v/c/d, LE swelling or pain. Nursing states pt has had no s/sx of alcohol withdrawal. Pt states he generally has 2-3 bourbon drinks/Manhattans a night, most nights of the week. He states he does have nights during which he does not have any alcohol and has no issues. Denies hx of withdrawal seizures or other sx. He states he had a drink the night before his surgery. DOS 05/17/19. Pt takes gabapentin 300mg TID at baseline for nerve pain. He states he has his medications in a pill box and never misses doses. Allergies Allergy/AdvReac Type Severity Reaction Status Date / Time Cephalosporins Allergy Mild RASH Verified 05/17/19 09:15 tetracycline Allergy Mild Rash Verified 05/17/19 09:15 Home Medications Home Medications Medication Instructions Recorded Confirmed Type aspirin 81 mg PO QAM 05/10/19 05/17/19 History cholecalciferol (vitamin D3) 5,000 unit PO QAM 05/10/19 05/17/19 History [Vitamin D3] coenzyme Q10 [CoQ-10] 100 mg PO QAM 05/10/19 05/17/19 History gabapentin [Neurontin] 300 mg PO TID 05/10/19 05/17/19 History latanoprost 1 drp OPB HS 05/10/19 05/17/19 History melatonin 10 mg PO HS 05/10/19 05/17/19 History fnyjzbad-zwx-OF-lycopen-lutein 1 tab PO DAILY 05/10/19 05/17/19 History [Centrum Silver] naproxen 500 mg PO QAM 05/10/19 05/17/19 History omega 4-nxg-nej-fish oil [Fish Oil] 1 cap PO BID 05/10/19 05/17/19 History turmeric-turmeric root extract 1 cap PO QAM 05/10/19 05/17/19 History valsartan-hydrochlorothiazide 0.5 tab PO QAM 05/10/19 05/17/19 History [Diovan HCT] Patient History Medical History HTN (hypertension) Melanoma Transitional cell carcinoma of bladder (~04/10/09) Anemia chronic; no known hx of blood transfusions per patient BPH (benign prostatic hyperplasia) Chronic back pain GERD (gastroesophageal reflux disease) controlled SQUAXIN (hard of hearing) Hematuria Osteoarthritis Peripheral neuropathy Risk for falls 2/2 chronic balance issues Transient ischemic attack (TIA) 2019 Wounds, multiple multiple wounds related to mechanical falls 2/2 poor balance- following with wound clinic, + MRSA LUE wound (infection control made aware) Surgical History History of biopsy of bladder History of cataract surgery RT/LEFT History of colonoscopy History of cystoscopy MULTIPLE History of esophagogastroduodenoscopy (EGD) History of tonsillectomy and adenoidectomy History of tooth extraction Hx of knee surgery LEFT History of bladder surgery TURBT: 03/08/17: LMA# 5.0 at [facility] Family History Other Family history non-contributory Social History Preferred Language: Welsh Communication Ability: Effective Vise Hand Required: No Beliefs That Will Affect Care: None marital status: / Current Living Situation: Family Current Living Situation Comment: GRANDSON LIVES WITH PT Other Information That Helps Us Care for You: No Feels Safe at Home: Yes Safety Concerns: Feels Safe At This Time Smoking Status: Former smoker Tobacco Type: cigarettes ; Do You Dip or Chew Tobacco: No ; Smoking End Date: QUIT 40 YEARS AGO ; Second Hand Exposure: No ; Tobacco Cessation Education Requested by Patient: No Hx Alcohol Use: Yes Alcohol type: beer, wine and hard liquor Hx Substance Use: No Review of Systems Review of Systems: Pertinent positives and negatives reviewed in HPI--all others negative Physical Exam Constitutional: WD/WN, vitals as above Eyes: normal visual wilkinson by confrontation and + anicteric sclerae Neck: normal visual inspection and trachea midline Respiratory: normal respiratory effort, lungs clear to auscultation Cardiovascular: Rate/Rhythm: regular rate and regular rhythm Gastrointestinal (Abdomen): Inspection/Auscultation: abdomen not distended Percussion/Palpation: abdomen soft; abdomen nontender Musculoskeletal: Head/Neck/Chest: normocephalic and head atraumatic negative for edema, peripheral pulses intact Skin: no rashes, warm and dry Neurologic: awake; not confused Speech / Cognition: normal speech Motor/Sensory: no tremor and normal movement Upon entering the room, pt is sitting up in a chair and starting to eat his lunch. He was able to use his knife and fork without issue/shaking, etc. He was able to tell me why he was in the hospital. Psychiatric: A+Ox3, euthymic affect Results & Data Vital Signs (Past 12 Hours) Vital Signs Temp Pulse Pulse Resp BP Pulse Ox 05/18/19 12:15 36.8 C 75 16 100/56 L 99 05/18/19 07:50 36.4 C L 75 15 102/57 L 99 05/18/19 02:59 36.5 C 75 16 111/65 99 Diagnostic Findings CXR: neg for acute CTAP: neg for acute ECG Rhythm: normal sinus PG Care Time/CCT Total # of Minutes Spent Total Time Spent with Patient: Total time spent is greater than 50% in coordination of care (as documented) at patient's floor/unit and/or counseling patient: (1) Bladder cancer Bladder location: unspecified site Qualified Code(s): C67.9 - Malignant neoplasm of bladder, unspecified
[2019-05-18] MEDS ORDERED: THIAMINE HCL 100 MG TAB PO SCH (13:30)
[2019-05-18 15:16] VITALS: TEMP 97.3
[2019-05-18] MEDS: POTASSIUM CHLORIDE / WTR 10 MEQ/100 ML PLCT IV SCH ×3 (15:30→17:34)
[2019-05-18 17:03] VITALS: BP 119/67
[2019-05-19] MEDS ORDERED: FOLIC ACID 1 MG TAB PO SCH (09:00)
--- NOTE | 2019-05-22 07:56 | Discharge Summary ---
Date of Service May 22, 2019 Admission HPI Per Admitting Provider Long hx of bladder cancer - with substantial interval progression of disease based on in-office surveillance cysto - presenting for TURBT Principal Diagnosis bladder cancer Discharge Data Allergies Allergy/AdvReac Type Severity Reaction Status Date / Time Cephalosporins Allergy Mild RASH Verified 05/17/19 09:15 tetracycline Allergy Mild Rash Verified 05/17/19 09:15 Consultations 05/18/19 12:20 Consult Hospitalist Routine Procedures Performed Operation Date: 05/17/19 10:25 Actual Procedures p Transurethral Resection Bladder Tumor, Meatal Dilation(Not Applicable) - Nathanael Sierra MD Ordered Studies 05/17/19 13:27 CT abd pelvis IV con only Routine Hospital Course (1) Bladder cancer: tolerated TURBT well continued hematuria overnight but no other major issues debated PT eval and possible rehab placement - but ultimately ended up sending him home he has home care in place and lives with his grandson pathology revealed extensive T2 disease CT during hospitalization did not reveal any extravesical disease Total Time Total Time Spent Total Time Spent (In Minutes): 45 Total Time Includes: Examination of the Patient, Discharge Planning, Medication Reconciliation and Communication With Other Providers Discharge Plan Discharge Items Patient Disposition: Home - Home Health Services Reason For Visit: Bladder Tumors Discharge Diagnosis: bladder tumor Condition on Discharge: Good Activity: Per Instructions section Lifting: No more than 10 pounds Bathing Comment: okay to shower. no tub baths/soaking while catheter in place. Sexual Activity: Wait until after follow-up appointment Exercise/Sports: Wait until after follow-up appointment Driving/Machine Use: no driving while taking prescription pain control Non-emergency contact: Urologist Call non-emergency contact if: your pain is not controlled, your pain is unusual for you and your temperature is above 101 Follow-up/Referrals: Zi Mcrae [Primary Care Provider] - Diet: Regular Addtl Attending Provider Instructions: Please take all medications as prescribed and keep all follow-ups as scheduled. Please call our office at [phone] with any questions, concerns or need to reschedule appointments for any reason. We are happy to assist you. Tips for your recovery at home: Dont be alarmed by brownish or reddish blood or clots in your urine. This is a result of the procedure. However, if this does not improve after 1 week, please contact our office. Drink plenty of fluids during the day (enough to keep your urine very light colored). This will help keep a healthy flow of urine. Do not lift >25 lbs until your followup Avoid constipation. Please use a stool softener (Colace) for the first two weeks after your procedure Be sure to finish the antibiotics as prescribed. If you go home with a catheter, please wash tubing where it enters your body twice daily with mild soap (Dove or Dial). Once your catheter is removed, expect some blood in your urine and some burning when you urinate. You should have an appointment to have this removed, if you do not please call our office to arrange. When to call [facility] at [phone]: Your urine contains heavy blood clots You are constantly leaking urine Fever of 101F or higher, chills, nausea, or vomiting Your pain is not relieved with medication Pending Studies at Discharge: Yes Studies:: pathology Stand-Alone Forms: [facility], Smoking Cessation Medications and DC Order Prescriptions: Continued latanoprost 0.005 % drops 1 drp OPB HS RF: 0 valsartan-hydrochlorothiazide [Diovan HCT] 160-12.5 mg Tablet 0.5 tab PO QAM RF: 0 gabapentin [Neurontin] 300 mg Capsule 300 mg PO TID RF: 0 naproxen 500 mg tablet 500 mg PO QAM RF: 0 coenzyme Q10 [CoQ-10] 100 mg Capsule 100 mg PO QAM RF: 0 Centrum Silver 0.4-300-250 mg-mcg-mcg Tablet 1 tab PO DAILY RF: 0 cholecalciferol (vitamin D3) [Vitamin D3] 5,000 unit Tablet 5,000 unit PO QAM RF: 0 omega 9-ppw-dli-fish oil [Fish Oil] 1,000 mg (120 mg-180 mg) Capsule 1 cap PO BID RF: 0 melatonin 10 mg Tablet 10 mg PO HS RF: 0 turmeric-turmeric root extract 450-50 mg Capsule 1 cap PO QAM RF: 0 Discontinued aspirin 81 mg Tablet,Delayed Release (Dr/Ec) 81 mg PO QAM RF: 0 Discharge Orders: Discharge Order (Routine); Ordered 05/18/19 Ordered By: Tawana Lubin/Other Patient Handouts: TURP, TURP Home Recover Admission Data Admit Date/Time: 05/17/19 12:34 Attending Provider: Nathanael Sierra Admit Provider: Nathanael Sierra Primary Care Provider: Zi Mcrae Other Providers: Tho Jacobson ; Nelli Maya ; Maria De Jesus Franco ; Francis Lawton ; Alex Limon ; Alyssa Hinson ; Cuco Jackson ; Maico Watt ; Aman Norwood ; Agatha Blanco ; Galina Espinosa ; Val Hennessy ; Don Owens ; Rajani Martin ; Sonido Hayes ; Phoenix Holguin ; Nelli Robert ; Oc Boss ; Margo Hopper ; Cb Siu ; Nathanael Whaley ; Francis Mojica ; Kentrell Pearce ; Nguyen Zhu ; Tim Hoffman ; Zain Rodrigez ; Moises Reeves ; Matthias Dunbar ; Ananth Beatty Other Interventions: Discharge Summary Assessment (RN) Last Done: 05/18/19 17:02 DC Date/Time DO NOT enter until pt leaves facility: 05/18/19 19:20
== END 2019-05-18 19:20 | disposition home health service (06) ==
LOC: ASU 08:35 → 3W 08:35

== ENCOUNTER 2019-08-10 15:55 | Inpatient (IN) ==
--- NOTE | 2019-08-10 16:49 | XRay Report ---
XR chest 1V portable HISTORY: 83 years-old Male weakness weakness COMPARISON: Chest radiograph 07/04/2019 TECHNIQUE: Portable AP view of the chest FINDINGS: Cardiac silhouette is enlarged, unchanged. Pulmonary vascular congestion with right greater left biba silar airspace opacities, similar to the comparison study. Mild blunting of the costophrenic angles s uggests trace effusions. No pneumothorax. Degenerative changes of the shoulders and spine. IMPRESSION: 1. Cardiomegaly with pulmonary vascular congestion. 2. Right greater than left bibasilar consolidation is suspicious for pneumonia or aspiration pneumoni tis. 3. Trace pleural effusions. ACT 112: Negative or not required by law. The above report was generated using voice recognition software. It may contain grammatical, syntax o r spelling errors. Electronically signed by: Padilla Ruano M.D. 08/10/2019 4:48 PM
[2019-08-10 17:01] LABS: Basophils # (auto) 0.01 K/uL (0-0.2); Basophils % (auto) 0.1 %; Eosinophils # (auto) 0.12 K/uL (0-0.5); Eosinophils % (auto) 1.2 %; Hemoglobin 8.3 g/dL (14.0-18.0); Immature Granulocytes # (auto) 0.02 K/uL (0.00-0.02); Immature Granulocytes % (auto) 0.2 %; Lymphocytes # (auto) 0.36 K/uL (1.2-3.4); Lymphocytes % (auto) 3.5 %; Mean Corpuscular Hemoglobin 32.4 pg (25-34); Mean Corpuscular Hgb Conc 34.6 g/dL (32-36); Mean Corpuscular Volume 93.8 fL (80-100); Mean Platelet Volume 8.7 fL (7.4-10.4); Monocytes % (auto) 3.9 %; Neutrophils % (auto) 91.1 %; Platelet Count 166 K/uL (130-400); RDW Coefficient of Variation 15.9 % (11.5-14.5); RDW Standard Deviation 54.7 fL (36.4-46.3); Red Blood Count 2.56 M/uL (4.7-6.1); White Blood Count 10.21 K/uL (4.8-10.8)
[2019-08-10 17:18] LABS: Albumin Level 2.3 gm/dl (3.4-5.0); BUN Creatinine Ratio 22.5 (10-20); Calcium 8.5 mg/dl (8.5-10.1); Creatinine Clr Calc Pharmacy 50.7 ml/min; Est GFR (African American) 76.4; Est GFR (Non-African American) 65.9
[2019-08-10 17:30] LABS: Albumin Globulin Ratio 0.7 (0.9-2); Bilirubin,Total 0.7 mg/dl (0.2-1); Globulin 3.3 gm/dl (2.5-4.0); Total Protein 5.6 gm/dl (6.4-8.2)
[2019-08-10] MEDS ORDERED: LIDOCAINE/EPINEPH/TETRACAINE 1 EA SYR EXT STA (17:30)
[2019-08-10 17:36] LABS: Appearance Urine Cloudy (Clear); Color Urine Red
[2019-08-10 17:40] LABS: Specific Gravity Urine 1.019 (1.000-1.060)
[2019-08-10 17:47] LABS: Sulfosalicylic Acid Urine Positive (Negative)
[2019-08-10 17:48] LABS: Bacteria Urine Negative (Negative); Epithelial Cell Urine 0-5 /lpf (0-5); Protein Urine Positive (Negative); RBC Urine >30 /hpf (0-4); WBC Urine 0-5 /hpf (0-5)
--- NOTE | 2019-08-10 17:55 | CT Scan Report ---
CT SCAN OF THE BRAIN WITHOUT IV CONTRAST CLINICAL HISTORY: Trauma. Fall. COMPARISON STUDY: CT of the brain dated 06/26/2019. TECHNIQUE: Unenhanced axial CT scan of the brain is performed from the vertex to the skull base. A do se lowering technique was utilized adhering to the principles of ALARA. FINDINGS: Brain parenchyma: There are age-related involutional changes noting moderate to advanced confluent s ubcortical and periventricular microangiopathic change. There is no hemorrhage, mass effect, or evide nce of acute territorial ischemia by CT criteria. Mcgowan-white matter differentiation is preserved. No extra-axial fluid collection is seen. Ventricles, sulci, cisterns: Prominent secondary to involutional change. Intracranial vasculature: There is atherosclerotic calcification of the cavernous carotid and vertebr al arteries. Calvarium: The skeletal structures are osteopenic. No depressed calvarial fracture is identified. Soft tissues: There is right frontal scalp contusion/laceration. Sinuses and mastoids: There is trace fluid in the right maxillary antrum. The remaining visualized pa ranasal sinuses are clear. The mastoid air cells are well pneumatized. Orbits: The bony orbits are grossly intact. There are bilateral ocular lens implants. IMPRESSION: There is no hemorrhage, mass effect, or evidence of acute territorial ischemia by CT maya de. ACT 112: Negative or not required by law. Electronically signed by: Jeremy Brwon M.D. 08/10/2019 5:54 PM
--- NOTE | 2019-08-10 18:08 | CT Scan Report ---
CT cervical spine wo con CT DOSE: 1043.08 mGy.cm CLINICAL HISTORY: 83 years-old Male with eval for trauma. Acute neck pain status post trauma COMPARISON: Head CT of same day, CTA neck 06/28/2019 TECHNIQUE: Multiple axial CT images of the cervical spine were obtained without contrast. A dose low ering technique was utilized adhering to the principles of ALARA. FINDINGS: Markedly advanced multilevel disc space narrowing with likely degenerative endplate irregularity and facet arthrosis with severe spondylitic spurring. Unchanged 6 mm anterolisthesis C7 on T1, likely sec ondary to long-standing facet arthrosis. Degenerative bony fusion of the occipital atlantal articulat ion. Bony fusion at C2-C3. Unchanged mild superior endplate compression of less than 20% at T2 and T3 . No acute cervical spine fracture or subluxation identified. Convex right curvature of the mid cervi margareth spine. Imaged mastoid air cells appear clear. Mild mucosal thickening of the paranasal sinuses. E valuation of the central canal and neuroforamina are better evaluated by MRI. Multilevel foraminal na rrowing is noted. Remote appearing fracture of the right C7 transverse process on image 213 series 5 appears unchanged from the comparison CTA of the neck. Pleural-parenchymal scarring of the lung apices. There are multiple micronodules of the lung apices w ith a subpleural 4 mm solid nodule of the left lung apex, slightly increased in size from comparison. Soft tissues are unremarkable. Calcified plaque of the carotid arteries. No prevertebral soft tissue swelling. IMPRESSION: 1. No acute cervical spine fracture or subluxation. 2. Advanced degenerative changes as above. 3. Multiple solid pulmonary nodules of the lung apices measuring up to 4 mm, likely infectious or inf lammatory. ACT 112: Negative or not required by law. The above report was generated using voice recognition software. It may contain grammatical, syntax o r spelling errors. Electronically signed by: Padilla Ruano M.D. 08/10/2019 6:07 PM
[2019-08-10] MEDS ORDERED: PIPERACILL/TAZOBAC CONSULT ACTIVE PRN ×2 (19:50→23:46)
[2019-08-10] MEDS ORDERED: SODIUM CHLORIDE 0.9% 500 ML IV ONE (19:50)
[2019-08-10] MEDS ORDERED: PIPERACILLIN/TAZOBACTAM 4.5 GM/120 ML BAG IV ONE (19:50)
--- NOTE | 2019-08-10 20:57 | History & Physical Report ---
Date of Service August 10, 2019 Assessment & Plan (1) Aspiration pneumonia: Admit tele IV Zosyn PRN Duo nebs D5 NSS @100 DVT prophylaxis = SCDs and sub-q heparin Aspiration precautions Speech therapy eval. (2) Laceration: Sutured in the ED (3) Weakness: PT/OT (4) Bladder cancer: Receiving radiation treatment. last one was 07/27/2019 (5) GERD (gastroesophageal reflux disease): Pepcid ordered. History of Present Illness 83 y/o male presented to the ED who presents to the ED with detention reporting increased weakness and declining cognitive status. He apparently fell the previous night and struck his head. He reports that he lost balance. No loss of consciousness reported. He has mild right side of head pain. No F/C, cough, chest pain, dysuria per patient. Primary Care Provider: Alanna Payne Allergies Allergy/AdvReac Type Severity Reaction Status Date / Time Cephalosporins Allergy Mild RASH Verified 08/10/19 17:18 tetracycline Allergy Mild Rash Verified 08/10/19 17:18 Home Medications Home Medications Medication Instructions Recorded Confirmed Type Centrum Silver 1 tab PO QAM 05/10/19 08/10/19 History cholecalciferol (vitamin D3) 5,000 unit PO QAM 05/10/19 08/10/19 History [Vitamin D3] gabapentin [Neurontin] 300 mg PO TID 05/10/19 08/10/19 History melatonin 10 mg PO HS 05/10/19 08/10/19 History omega 6-[id number]-lww-fish oil [Fish Oil] 1 cap PO BID 05/10/19 08/10/19 History lidocaine 1 patch TRANSDERMAL QAM #7 ea 07/09/19 08/10/19 Rx acetaminophen 325 mg capsule 650 mg PO QID PRN cap MDD 3G 07/17/19 08/10/19 History bisacodyl 10 mg rectal suppository 10 mg [place] DAILY PRN 07/17/19 08/10/19 History food supplemt, lactose-reduced 1 ea PO TIDM ml 07/17/19 08/10/19 History 0.04 gram-1 kcal/mL oral liquid losartan 50 mg tablet 50 mg PO DAILY 07/17/19 08/10/19 History acetaminophen [Tylenol Extra 500 mg PO BID 08/08/19 08/10/19 History Strength] coQ10 (ubiquinol) 100 mg PO DAILY 08/08/19 08/10/19 History ondansetron HCl 4 mg PO Q6H PRN 08/10/19 08/10/19 History Past Med/Surg History Medical History Alcohol use Anemia chronic; no known hx of blood transfusions per patient 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 Bladder cancer (Acute) BPH (benign prostatic hyperplasia) Chronic back pain GERD (gastroesophageal reflux disease) controlled Hematuria [place] (hard of hearing) HTN (hypertension) Hypokalemia Melanoma 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, 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) Osteoarthritis Peripheral neuropathy Risk for falls 2/2 chronic balance issues Transient ischemic attack (TIA) 2018 Wounds, multiple multiple wounds related to mechanical falls 2/2 poor balance- following with wound clinic, + MRSA LUE wound (infection control made aware) Surgical History History of biopsy of bladder 04/10/09, 11/03/12, 02/19/13, 08/23/14, 03/06/17, 05/17/19 History of cataract surgery RT/LEFT History of colonoscopy History of cystoscopy MULTIPLE History of esophagogastroduodenoscopy (EGD) History of tonsillectomy and adenoidectomy History of tooth extraction Hx of knee surgery LEFT Family History Mother , Passed age 93 of stroke No problems noted. Father , Passed age 59 of stroke complications No problems noted. Brother , Passed age 50 of complications from Down Syndrome No problems noted. Sister , Passed age 17 of MVA No problems noted. Sister , Passed age 80 of unknown No problems noted. Son No problems noted. Son No problems noted. Son No problems noted. Other Family history non-contributory Social History Preferred Language: Greenlandic Communication Ability: Effective Visual Impairment: No Limitations Hearing Ability: Hard of Hearing Export Documents Clerk Required: No Beliefs That Will Affect Care: None marital status: / Current Living Situation: Residential Current Living Situation Comment: [facility] current occupational status: retired current occupation: Retired [employer] Feels Safe at Home: Yes Smoking Status: Former smoker Tobacco Type: cigarettes ; packs per day: 0.5 ; Do You Dip or Chew Tobacco: No ; Smoking End Date: quit 40 years ago ; Number of Years Since Quit: 30 ; Second Hand Exposure: No ; Hx Alcohol Use: Yes Alcohol type: beer, wine and hard liquor Alcohol Intake Frequency: Daily Alcohol Intake Frequency Comment: 3 Cocktails before dinner Hx Substance Use: No Childhood Exposure to Second-Hand Smoke: Yes caffeine: No during the past year weight has: decreased > 10 lbs Dental Care, Regularly: Yes Review of Systems Review of Systems: All systems reviewed & are unremarkable except as noted in HPI & below Physical Exam Physical Exam: General- adult male, NAD Head- atraumatic. 2.5 cm laceration above right forehead, sutured, no active bleeding. Eyes- PERRL, EOMI, anicteric ENT- oropharynx clear Neck- supple, no JVD, no adenopathy, no thyromegaly. Lungs- Decreased breath sounds b/l bases, No wheezes, rales or rhonchi Heart- regular rhythm; no murmur, no gallop, no rub appreciated Abdomen- normal bowel sounds, soft, nontender. Extremities- no pretibial edema, no calf tenderness; peripheral pulses intact Neuro- alert, oriented to person, place (hospital was answer) and year; CN's II- XII grossly intact, non-focal. SKIN - bruises noted to arms b/l. Results & Data Vital Signs (Past 12 Hours) Vital Signs Temp Pulse Pulse Resp BP BP Pulse Ox 08/10/19 19:25 87 18 132/72 97 08/10/19 18:30 86 12 08/10/19 18:01 74 15 08/10/19 18:00 76 14 132/58 L 08/10/19 17:31 78 17 08/10/19 17:30 79 14 129/57 L 08/10/19 17:18 80 17 08/10/19 17:17 82 16 140/65 08/10/19 17:00 88 14 97 08/10/19 16:35 99 08/10/19 16:32 75 14 97 08/10/19 16:31 76 15 96 08/10/19 16:11 36.4 C L 77 18 134/52 L 99 Code Status & VTE Plan VTE Prophylaxis Plan VTE Prophylaxis will be ordered: Yes PG Care Time/CCT Total # of Minutes Spent Total Time Spent: 55 Total Time Spent with Patient: Total time spent is greater than 50% in coordination of care (as documented) at patient's floor/unit and/or counseling patient: Coding Level of Care Code 95530 Initial Inpt Care Lvl 3 Diagnoses Aspiration pneumonia J69.0 Laceration Weakness R53.1 Bladder cancer C67.9 Bladder location: unspecified site GERD (gastroesophageal reflux disease) K21.9 (1) Bladder cancer Bladder location: unspecified site Qualified Code(s): C67.9 - Malignant neoplasm of bladder, unspecified
[2019-08-10] MEDS ORDERED: ACETAMINOPHEN 325 MG TAB PO PRN (23:46)
[2019-08-10] MEDS ORDERED: ONDANSETRON INJ 2 MG/ML 2 ML VIAL IV PRN (23:46)
[2019-08-10] MEDS ORDERED: ALBUT/IPRATROP 3MG/0.5MG NEB 3 ML VIAL NEB PRN (23:46)
--- NOTE | 2019-08-10 23:55 | Emergency Department Note ---
Entered by Cheryl Hinton acting as a scribe for Amaury Chavez MD History of Present Illness General Chief complaint: Fall Time Seen by Provider: 08/10/19 17:23 Source: patient Mode of arrival: EMS Limitations: other (Patient is very hard of hearing and slightly confused) History of Present Illness Onset (ago): day(s) 1 Radiation: non-radiation Pain Consistency: + now resolved Relieved By: + none Exacerbated By: + none Associated symptoms: + headaches (+right sided head pain) and + other (-LOC, - urinary symptoms); no chest pain, no fever/chills and no shortness of breath Treatments prior to arrival: none The patient is an 83 year old male who presents to the ED with complaints of a fall that occurred last night. He was brought to the ED via EMS from the [facility] where he resides. He states he fell last night after losing his balance and hit his head. He did not lose consciousness. He denies any recent chest pain, shortness of breath or urinary symptoms. He states the only pain is on the right side of his head where he hit his head during the fall. He denies any recent fevers. Nursing reports staff at the [facility] states his mental status has been declining recently. Home Medications Home Medications Medication Instructions Recorded Confirmed Type Centrum Silver 1 tab PO QAM 05/10/19 08/10/19 History cholecalciferol (vitamin D3) 5,000 unit PO QAM 05/10/19 08/10/19 History [Vitamin D3] gabapentin [Neurontin] 300 mg PO TID 05/10/19 08/10/19 History melatonin 10 mg PO HS 05/10/19 08/10/19 History omega 1-zco-nok-fish oil [Fish Oil] 1 cap PO BID 05/10/19 08/10/19 History lidocaine 1 patch TRANSDERMAL QAM #7 ea 07/09/19 08/10/19 Rx acetaminophen 325 mg capsule 650 mg PO QID PRN cap MDD 3G 07/17/19 08/10/19 History bisacodyl 10 mg rectal suppository 10 mg ND DAILY PRN 07/17/19 08/10/19 History food supplemt, lactose-reduced 1 ea PO TIDM ml 07/17/19 08/10/19 History 0.04 gram-1 kcal/mL oral liquid losartan 50 mg tablet 50 mg PO DAILY 07/17/19 08/10/19 History acetaminophen [Tylenol Extra 500 mg PO BID 08/08/19 08/10/19 History Strength] coQ10 (ubiquinol) 100 mg PO DAILY 08/08/19 08/10/19 History ondansetron HCl 4 mg PO Q6H PRN 08/10/19 08/10/19 History Allergies Allergy/AdvReac Type Severity Reaction Status Date / Time Cephalosporins Allergy Mild RASH Verified 08/10/19 17:18 tetracycline Allergy Mild Rash Verified 08/10/19 17:18 Past Med/Surg History Medical History Alcohol use Anemia chronic; no known hx of blood transfusions per patient 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 Bladder cancer (Acute) BPH (benign prostatic hyperplasia) Chronic back pain GERD (gastroesophageal reflux disease) controlled Hematuria EEK (hard of hearing) HTN (hypertension) Hypokalemia Melanoma 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, 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) Osteoarthritis Peripheral neuropathy Risk for falls 2/2 chronic balance issues Transient ischemic attack (TIA) 2018 Wounds, multiple multiple wounds related to mechanical falls 2/2 poor balance- following with wound clinic, + MRSA LUE wound (infection control made aware) Surgical History History of biopsy of bladder 04/10/09, 11/03/12, 02/19/13, 08/23/14, 03/06/17, 05/17/19 History of cataract surgery RT/LEFT History of colonoscopy History of cystoscopy MULTIPLE History of esophagogastroduodenoscopy (EGD) History of tonsillectomy and adenoidectomy History of tooth extraction Hx of knee surgery LEFT Family History Mother , Passed age 93 of stroke No problems noted. Father , Passed age 59 of stroke complications No problems noted. Brother , Passed age 50 of complications from Down Syndrome No problems noted. Sister , Passed age 17 of MVA No problems noted. Sister , Passed age 80 of unknown No problems noted. Son No problems noted. Son No problems noted. Son No problems noted. 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 Beliefs That Will Affect Care: None marital status: / Current Living Situation: Family Current Living Situation Comment: [facility] current occupational status: retired current occupation: Retired [employer] Feels Safe at Home: Yes Smoking Status: Never smoker Tobacco Type: cigarettes ; packs per day: 0.5 ; Number of Years Since Quit: 30 ; Second Hand Exposure: No ; Hx Alcohol Use: Yes Alcohol type: beer, wine and hard liquor Alcohol Intake Frequency: Daily Alcohol Intake Frequency Comment: 3 Cocktails before dinner Hx Substance Use: No Childhood Exposure to Second-Hand Smoke: Yes caffeine: No during the past year weight has: decreased > 10 lbs Dental Care, Regularly: Yes Review of Systems See HPI for pertinent positives & negatives. and A total of 10 systems reviewed and were otherwise negative Physical Exam Vital Signs Vital Signs - 24 hr 08/10/19 16:11 08/10/19 16:31 08/10/19 16:32 Temperature 36.4 C L Temperature Source Oral Pulse Rate 77 76 75 Pulse Rate [Finger] Pulse Rate from SpO2 Sensor 77 75 Respiratory Rate 18 15 14 Blood Pressure 134/52 L Blood Pressure [Left Arm] Blood Pressure Mean 79 Blood Pressure Mean [Left Arm] Pulse Oximetry 99 96 97 Oxygen Delivery Method Room Air Sepsis Recent Fever Within 48 Hours No Sepsis Action Taken by Nursing No Action Required 08/10/19 16:35 08/10/19 17:00 08/10/19 17:17 Temperature Temperature Source Pulse Rate 88 82 Pulse Rate [Finger] Pulse Rate from SpO2 Sensor 89 Respiratory Rate 14 16 Blood Pressure 140/65 Blood Pressure [Left Arm] Blood Pressure Mean 79 Blood Pressure Mean [Left Arm] Pulse Oximetry 99 97 Oxygen Delivery Method Room Air Sepsis Recent Fever Within 48 Hours Sepsis Action Taken by Nursing 08/10/19 17:18 08/10/19 17:30 08/10/19 17:31 Temperature Temperature Source Pulse Rate 80 79 78 Pulse Rate [Finger] Pulse Rate from SpO2 Sensor Respiratory Rate 17 14 17 Blood Pressure 129/57 L Blood Pressure [Left Arm] Blood Pressure Mean 81 Blood Pressure Mean [Left Arm] Pulse Oximetry Oxygen Delivery Method Sepsis Recent Fever Within 48 Hours Sepsis Action Taken by Nursing 08/10/19 18:00 08/10/19 18:01 08/10/19 18:30 Temperature Temperature Source Pulse Rate 76 74 86 Pulse Rate [Finger] Pulse Rate from SpO2 Sensor Respiratory Rate 14 15 12 Blood Pressure 132/58 L Blood Pressure [Left Arm] Blood Pressure Mean 83 Blood Pressure Mean [Left Arm] Pulse Oximetry Oxygen Delivery Method Sepsis Recent Fever Within 48 Hours Sepsis Action Taken by Nursing 08/10/19 19:00 08/10/19 19:24 08/10/19 19:25 Temperature Temperature Source Pulse Rate 81 88 Pulse Rate [Finger] 87 Pulse Rate from SpO2 Sensor Respiratory Rate 12 22 18 Blood Pressure 132/72 Blood Pressure [Left Arm] 132/72 Blood Pressure Mean 88 Blood Pressure Mean [Left Arm] 92 Pulse Oximetry 97 Oxygen Delivery Method Room Air Sepsis Recent Fever Within 48 Hours Sepsis Action Taken by Nursing 08/10/19 19:30 08/10/19 19:31 08/10/19 20:00 Temperature Temperature Source Pulse Rate 78 79 85 Pulse Rate [Finger] Pulse Rate from SpO2 Sensor Respiratory Rate 13 18 17 Blood Pressure 147/57 H Blood Pressure [Left Arm] Blood Pressure Mean 64 Blood Pressure Mean [Left Arm] Pulse Oximetry Oxygen Delivery Method Sepsis Recent Fever Within 48 Hours Sepsis Action Taken by Nursing 08/10/19 20:02 08/10/19 20:30 Temperature Temperature Source Pulse Rate 82 75 Pulse Rate [Finger] Pulse Rate from SpO2 Sensor Respiratory Rate 16 13 Blood Pressure 87/61 L Blood Pressure [Left Arm] Blood Pressure Mean 62 Blood Pressure Mean [Left Arm] Pulse Oximetry Oxygen Delivery Method Sepsis Recent Fever Within 48 Hours Sepsis Action Taken by Nursing General: Chronically-ill appearing older male, awake, answers some questions appropriately HEENT: Normal cephalic. 2.5 cm laceration above right forehead, no active bleeding, Pupils are equal round and reactive to light. Extraocular movements are intact. Oropharynx is pink with moist mucous membranes. No swelling of the mouth lips or tongue. Neck: Supple with a midline trachea. No meningeal signs or stiffness, no JVD or bruits. No Stridor. Chest: Clear to auscultation bilaterally. No wheezes or rhonchi. No increased work of breathing. Heart: regular rate and rhythm. Abdomen: Soft nontender, nondistended without rebound guarding or rigidity. Extremities: No cyanosis clubbing or edema. No calf tenderness or asymmetry. Arthritic changes of the extremities with bruising, appears old. Spine/Back. Non tender to palpation. No CVA tenderness Skin: Some chronic skin changes on the bilateral arms. Good turgor without rashes. Neurologic exam: Patient is alert to person, partially alert to place. Cranial nerves two through 12 are intact. Motor and sensation are intact and symmetrical throughout. Procedures Free Text Procedures Lac note: Location: Right forehead Total length: 3 cm Complexity: Simple Verbal consent was obtained after the risks and benefits were explained, including but not limited to bleeding, scarring, infection, pain, and bone/joint/nerve damage. At this time, the risks of the procedure are less than the risks of NOT performing the procedure. A time out was taken and the correct patient and site identified. The skin was prepped with betadine. The target area was anesthetized with LET gel. Copious irrigation was performed using NSS. The skin was re-prepped with betadine and a sterile field set. The wound was explored for foreign bodies and none found. Examination revealed no injury to de ep structures such as tendons, bone, or significant blood vessels. Debridement was not performed. The wound edges were approximated using 5, 5-0 simple interrupted nylon sutures. Hemostasis and excellent approximation was achieved. Antibacterial ointment and a sterile dressing applied. Detailed wound care instructions and signs and symptoms of infection reviewed with the patient. No complications and the patient tolerated the procedure well. Course Course 1724: The patient was evaluated in room A4 and a complete history and physical were performed. 1942: I spoke with the patients son. I discussed the patients findings and my recommendation he remain in the hospital for further evaluation and management and the son is agreeable with the plan. 1954: I discussed the patients case with Dr. Boss, [facility] Hospitalist. The patient will be further evaluated. Administered Medications Discontinued Medications Piperacillin Sod/Tazobactam Sod (Zosyn) 4.5 gm in 120 mls @ 240 mls/hr IV NOW ONE; Protocol Stop: 08/10/19 20:19 Last Infusion: 08/10/19 21:03 Dose: 0 mls/hr Documented by: [id number] Admin: 08/10/19 20:26 Dose: 240 mls/hr Documented by: [id number] Sodium Chloride (Nss) 500 mls @ 999 mls/hr IV .Q31M ONE Stop: 08/10/19 20:20 Last Infusion: 08/10/19 21:03 Dose: 0 mls/hr Documented by: [id number] Admin: 08/10/19 20:26 Dose: 999 mls/hr Documented by: [id number] Lidocaine (Let Gel 4%/1:100/0.5%) 1 ea EXT NOW STA Stop: 08/10/19 17:31 Last Admin: 08/10/19 18:02 Dose: 1 ea Documented by: [id number] Medical Decision Making Differential Diagnosis The differential diagnoses considered include trauma, sepsis, cardiac disease, electrolyte or metabolic abnormality, laceration. Medical Records Attestation: I reviewed the patient's medical records. Home Medications Current Medication List: was personally reviewed by me Laboratory Data Attestation: I reviewed the patient's lab results. Result diagrams: 08/10/19 16:50 08/10/19 16:50 Lab Results 08/10/19 08/10/19 08/10/19 Range/Units 16:50 16:50 16:50 WBC 10.21 (4.8-10.8) K/uL RBC 2.56 L (4.7-6.1) M/uL Hgb 8.3 L (14.0-18.0) g/dL Hct 24.0 L (42-52) % MCV 93.8 (80-100) fL MCH 32.4 (25-34) pg MCHC 34.6 (32-36) g/dL RDW Std Deviation 54.7 H (36.4-46.3) fL RDW Coeff of Jesse 15.9 H (11.5-14.5) % Plt Count 166 (130-400) K/uL MPV 8.7 (7.4-10.4) fL Immature Gran % (Auto) 0.2 % Neut % (Auto) 91.1 % Lymph % (Auto) 3.5 % Twiggs % (Auto) 3.9 % Eos % (Auto) 1.2 % Baso % (Auto) 0.1 % Immature Gran # (Auto) 0.02 (0.00-0.02) K/uL Neut # (Auto) 9.30 H (1.4-6.5) K/uL Lymph # (Auto) 0.36 L (1.2-3.4) K/uL Twiggs # (Auto) 0.40 (0.11-0.59) K/uL Eos # (Auto) 0.12 (0-0.5) K/uL Baso # (Auto) 0.01 (0-0.2) K/uL Sodium 135 L (136-145) mmol/L Potassium 4.0 (3.5-5.1) mmol/L Chloride 101 (98-107) mmol/L Carbon Dioxide 30 (21-32) mmol/L Anion Gap 4.0 (3-11) BUN 23 H (7-18) mg/dl Creatinine 1.03 (0.6-1.4) mg/dl Est Cr Clr Drug Dosing 50.7 ml/min Est GFR ( Amer) 76.4 Est GFR (Non-Af Amer) 65.9 BUN/Creatinine Ratio 22.5 H (10-20) Glucose 93 (70-99) mg/dl Calcium 8.5 (8.5-10.1) mg/dl Total Bilirubin 0.7 (0.2-1) mg/dl AST 38 H (15-37) U/L ALT 28 (12-78) U/L Alkaline Phosphatase 86 (45-117) U/L Troponin I 0.018 (0-0.045) ng/ml Total Protein 5.6 L (6.4-8.2) gm/dl Albumin 2.3 L (3.4-5.0) gm/dl Globulin 3.3 (2.5-4.0) gm/dl Albumin/Globulin Ratio 0.7 L (0.9-2) TSH 2.000 (0.300-4.500) uIu/ml Urine Color Urine Appearance (Clear) Urine pH (4.5-7.5) Ur Specific Fabens (1.000-1.060) Urine Protein (Negative) Urine Glucose (UA) (Negative) Urine Ketones (Negative) Urine Blood (Negative) Urine Nitrite (Negative) Urine Bilirubin (Negative) Urine Urobilinogen (Negative) Ur Leukocyte Esterase (Negative) Urine RBC (0-4) /hpf Urine WBC (0-5) /hpf Ur Epithelial Cells (0-5) /lpf Urine Bacteria (Negative) 08/10/19 Range/Units 17:15 WBC (4.8-10.8) K/uL RBC (4.7-6.1) M/uL Hgb (14.0-18.0) g/dL Hct (42-52) % MCV (80-100) fL MCH (25-34) pg MCHC (32-36) g/dL RDW Std Deviation (36.4-46.3) fL RDW Coeff of Jesse (11.5-14.5) % Plt Count (130-400) K/uL MPV (7.4-10.4) fL Immature Gran % (Auto) % Neut % (Auto) % Lymph % (Auto) % Twiggs % (Auto) % Eos % (Auto) % Baso % (Auto) % Immature Gran # (Auto) (0.00-0.02) K/uL Neut # (Auto) (1.4-6.5) K/uL Lymph # (Auto) (1.2-3.4) K/uL Twiggs # (Auto) (0.11-0.59) K/uL Eos # (Auto) (0-0.5) K/uL Baso # (Auto) (0-0.2) K/uL Sodium (136-145) mmol/L Potassium (3.5-5.1) mmol/L Chloride (98-107) mmol/L Carbon Dioxide (21-32) mmol/L Anion Gap (3-11) BUN (7-18) mg/dl Creatinine (0.6-1.4) mg/dl Est Cr Clr Drug Dosing ml/min Est GFR ( Amer) Est GFR (Non-Af Amer) BUN/Creatinine Ratio (10-20) Glucose (70-99) mg/dl Calcium (8.5-10.1) mg/dl Total Bilirubin (0.2-1) mg/dl AST (15-37) U/L ALT (12-78) U/L Alkaline Phosphatase (45-117) U/L Troponin I (0-0.045) ng/ml Total Protein (6.4-8.2) gm/dl Albumin (3.4-5.0) gm/dl Globulin (2.5-4.0) gm/dl Albumin/Globulin Ratio (0.9-2) TSH (0.300-4.500) uIu/ml Urine Color Red Urine Appearance Cloudy A (Clear) Urine pH (4.5-7.5) Ur Specific Fabens 1.019 (1.000-1.060) Urine Protein Positive H (Negative) Urine Glucose (UA) (Negative) Urine Ketones (Negative) Urine Blood (Negative) Urine Nitrite (Negative) Urine Bilirubin (Negative) Urine Urobilinogen (Negative) Ur Leukocyte Esterase (Negative) Urine RBC >30 H (0-4) /hpf Urine WBC 0-5 (0-5) /hpf Ur Epithelial Cells 0-5 (0-5) /lpf Urine Bacteria Negative (Negative) Imaging Data Radiologist's Impression: Radiology results as stated below per my review and the radiologist's interpretation: XR chest 1V portable HISTORY: 83 years-old Male weakness weakness COMPARISON: Chest radiograph 07/04/2019 TECHNIQUE: Portable AP view of the chest FINDINGS: Cardiac silhouette is enlarged, unchanged. Pulmonary vascular congestion with right greater left bibasilar airspace opacities, similar to the comparison study. Mild blunting of the costophrenic angles suggests trace effusions. No pneumothorax. Degenerative changes of the shoulders and spine. IMPRESSION: 1. Cardiomegaly with pulmonary vascular congestion. 2. Right greater than left bibasilar consolidation is suspicious for pneumonia or aspiration pneumonitis. 3. Trace pleural effusions. ACT 112: Negative or not required by law. The above report was generated using voice recognition software. It may contain grammatical, syntax or spelling errors. Electronically signed by: Padilla Ruano M.D. 08/10/2019 4:[address] cervical spine wo con CT DOSE: 1043.08 mGy.cm CLINICAL HISTORY: 83 years-old Male with eval for trauma. Acute neck pain status post trauma COMPARISON: Head CT of same day, CTA neck 06/28/2019 TECHNIQUE: Multiple axial CT images of the cervical spine were obtained without contrast. A dose lowering technique was utilized adhering to the principles of ALARA. FINDINGS: Markedly advanced multilevel disc space narrowing with likely degenerative endplate irregularity and facet arthrosis with severe spondylitic spurring. Unchanged 6 mm anterolisthesis C7 on T1, likely secondary to long-standing facet arthrosis. Degenerative bony fusion of the occipital atlantal articulation. Bony fusion at C2-C3. Unchanged mild superior endplate compression of less than 20% at T2 and T3. No acute cervical spine fracture or subluxation identified. Convex right curvature of the mid cervical spine. Imaged mastoid air cells appear clear. Mild mucosal thickening of the paranasal sinuses. Evaluation of the central canal and neuroforamina are better evaluated by MRI. Multilevel foraminal narrowing is noted. Remote appearing fracture of the right C7 transverse process on image 213 series 5 appears unchanged from the comparison CTA of the neck. Pleural-parenchymal scarring of the lung apices. There are multiple micronodules of the lung apices with a subpleural 4 mm solid nodule of the left lung apex, slightly increased in size from comparison. Soft tissues are unremarkable. Calcified plaque of the carotid arteries. No prevertebral soft tissue swelling. IMPRESSION: 1. No acute cervical spine fracture or subluxation. 2. Advanced degenerative changes as above. 3. Multiple solid pulmonary nodules of the lung apices measuring up to 4 mm, li brielle infectious or inflammatory. ACT 112: Negative or not required by law. The above report was generated using voice recognition software. It may contain grammatical, syntax or spelling errors. Electronically signed by: Padilla Ruano M.D. 08/10/2019 6:[address] SCAN OF THE BRAIN WITHOUT IV CONTRAST CLINICAL HISTORY: Trauma. Fall. COMPARISON STUDY: CT of the brain dated 06/26/2019. TECHNIQUE: Unenhanced axial CT scan of the brain is performed from the vertex to the skull base. A dose lowering technique was utilized adhering to the principles of ALARA. FINDINGS: Brain parenchyma: There are age-related involutional changes noting moderate to advanced confluent subcortical and periventricular microangiopathic change. There is no hemorrhage, mass effect, or evidence of acute territorial ischemia by CT criteria. Mcgowan-white matter differentiation is preserved. No extra-axial fluid collection is seen. Ventricles, sulci, cisterns: Prominent secondary to involutional change. Intracranial vasculature: There is atherosclerotic calcification of the cavernous carotid and vertebral arteries. Calvarium: The skeletal structures are osteopenic. No depressed calvarial fracture is identified. Soft tissues: There is right frontal scalp contusion/laceration. Sinuses and mastoids: There is trace fluid in the right maxillary antrum. The remaining visualized paranasal sinuses are clear. The mastoid air cells are well pneumatized. Orbits: The bony orbits are grossly intact. There are bilateral ocular lens implants. IMPRESSION: There is no hemorrhage, mass effect, or evidence of acute territorial ischemia by CT criteria. ACT 112: Negative or not required by law. Electronically signed by: Jeremy Brown M.D. 08/10/2019 5:54 PM ECG Data Attestation: I personally reviewed and interpreted this ECG as follows: Indication: + weakness Rate (beats per minute): 79 Rhythm: + atrial fibrillation ECG Findings: + Other (Poor baseline, non-specific T-wave abnormality) Comparison ECG Date: from (06/26/2019) Change: no significant change Blood Pressure Blood Pressure Findings: Normal blood pressure Blood Pressure Disposition: did not require urgent referral MDM Narrative This patient comes in as described above. He was sent over after falling. He had hit his head and has a laceration. He does have some memory issues at baseline but they think he has been getting more confused he fell twice recently. He does answer some questions appropriately others not. I did a CAT scan of his head and neck. it was unremarkable for any acute findings. I did suture his laceration as outlined above. He tolerated this well. EKG does not suggest acute coronary syndrome or arrhythmia. Troponin is not elevated. He has no white count or fever to suggest infection however. his chest x-ray does sug gest aspiration. he has had issues with aspiration pneumonia before with the possible increasing confusion weakness and frequent falls. I am concerned about that I did give him Zosyn 4.5 g IV he has had this before I discussed his care with his son who agrees with this. The patient has been clearly DO NOT RESUSCITATE in the past according to his wishes and the son confirms this. I have discussed the case with hospitalist who will admit/observe the patient. Impression & Plan Head injury, Weakness, Aspiration pneumonia, Laceration Discharge Plan Visit Data *Final* Discharge Date/Time: 08/10/19 22:30 Chief Complaint: Fall ED Provider: Amaury Chavez Discharge Problem: Head injury, Weakness, Aspiration pneumonia, Laceration Patient Disposition: Admitted As Inpatient Discharge Instructions Interventions: ED Discharge Assessment Last Done: 08/10/19 22:30 Discharge Problem: Head injury Qualifiers: Encounter type: initial encounter Qualified Code(s): S09.90XA - Unspecified injury of head, initial encounter Aspiration pneumonia Qualifiers: Aspiration pneumonia type: unspecified Laterality: bilateral Lung location: lower lobe of lung Qualified Code(s): J69.0 - Pneumonitis due to inhalation of food and vomit The scribe's documentation has been prepared under my direction and personally reviewed by me in its entirety. I confirm that the note above accurately ref lects all work, treatment, procedures, and medical decision making performed by me.
[2019-08-11] MEDS: D5W AND NSS 1,000 ML IV SCH ×2 (00:15→10:29)
[2019-08-11] MEDS: GABAPENTIN 300 MG CAP PO SCH ×4 (01:13→20:45)
[2019-08-11] MEDS: FAMOTIDINE 20 MG TAB PO SCH ×3 (01:14→20:45)
[2019-08-11] MEDS: OMEGA-3 (PURIFIED FISH OIL) 1 GM CAP PO SCH ×3 (01:14→20:45)
[2019-08-11] MEDS: HEPARIN SOD 5,000 UNIT/0.5 ML VIAL SQ SCH ×2 (01:15→08:31)
[2019-08-11] MEDS: PIPERACILLIN/TAZOBACTAM 3.375 GM in DEXTROSE 5% 100 ML IV SCH ×3 (01:25→20:44)
[2019-08-11] MEDS ORDERED: NON-FORMULARY MEDICATION (Food Supplemt, Lactose-Reduced [Boost] 1 EA) PO SCH (08:00)
[2019-08-11 08:04] LABS: Hematocrit (blood only) 21.8 % (42-52); Hemoglobin 7.5 g/dL (14.0-18.0); Mean Corpuscular Hemoglobin 32.3 pg (25-34); Mean Corpuscular Hgb Conc 34.4 g/dL (32-36); Mean Platelet Volume 8.9 fL (7.4-10.4); Platelet Count 167 K/uL (130-400); RDW Coefficient of Variation 15.8 % (11.5-14.5); RDW Standard Deviation 54.7 fL (36.4-46.3); Red Blood Count 2.32 M/uL (4.7-6.1); White Blood Count 6.22 K/uL (4.8-10.8)
[2019-08-11] MEDS: CHOLECALCIFEROL 1,000 UNITS 25 MCG TAB PO SCH (08:30)
[2019-08-11] MEDS: CEROVITE ADV FORMULA TAB PO SCH (08:31)
[2019-08-11] MEDS: LIDOCAINE 5% 1 PATCH TD SCH (08:31)
[2019-08-11] MEDS: LOSARTAN POTASSIUM 50 MG TAB PO SCH (08:31)
[2019-08-11 08:52] LABS: BUN Creatinine Ratio 23.3 (10-20); Calcium 8.2 mg/dl (8.5-10.1); Creatinine Clr Calc Pharmacy 64.6 ml/min; Est GFR (African American) 92.1; Est GFR (Non-African American) 79.5; Potassium 3.8 mmol/L (3.5-5.1)
[2019-08-11] MEDS ORDERED: NON-FORMULARY MEDICATION (Coq10 (Ubiquinol) 100 MG) PO SCH (09:00)
[2019-08-11] MEDS ORDERED: SODIUM CHLORIDE 0.9% 250 ML IV PRN (12:01)
--- NOTE | 2019-08-11 12:26 | Hospitalist Progress Note ---
Date of Service August 11, 2019 Assessment & Plan (1) Aspiration pneumonia: Improving, not hypoxic Evaluated by speech and no significant aspiration Now with gram-positive cocci in chains in the bloodstream-likely has Streptococcus pneumoniae pneumonia which would probably be more community- acquired pneumonia Continue IV Zosyn Follow-up on blood cultures-repeat blood cultures Continue PRN Duo nebs Continue D5 NSS lowered to 70 mL's per hour (2) Laceration: Sutured in the ED with 4 sutures right forehead-needs removal on or around 08/18-08/[address] (3) Weakness: PT/OT consults ordered Secondary to pneumonia (4) Bladder cancer: Receiving radiation treatment. last one was 07/27/2019 Due on Tuesday and has approximately 5 more treatments left With persistent mild hematuria To meet with medical oncology although does not seem like a good candidate for systemic chemotherapy (5) GERD (gastroesophageal reflux disease): Continue Pepcid (6) Anemia: Hemoglobin down to 7.5 today, with persistent hematuria in the setting of chronic anemia Transfused 2 units PRBCs Follow CBC in the morning (7) Bacteremia: Growing gram-positive cocci in chains on admission as above Continue Zosyn Follow repeat blood cultures He will need at least 2 weeks of IV antibiotics most likely -Check echocardiogram for valvular vegetation (8) Gross hematuria: Secondary to bladder tumor, receiving radiation -Transfusing as above -Follow CBC Follows with urology (9) DVT prophylaxis: Discontinue SQ heparin due to hematuria and anemia SCDs Disposition-remain hospitalized Subjective Patient reports he is coughing but otherwise feels better. He was evaluated by speech this morning and did well with this-and is now eating a hotdog. He is still having blood in his urine but no clots. He is growing bacteria in his bloodstream as well. He is anemic and needs a blood transfusion. I consented the patient but he is disoriented. I then talked to his son on the phone who is his healthcare power of admitted attorneys who agreed to blood transfusion. Patient denies headache or lightheadedness denies chest pain or shortness of breath. Review of Systems Review of Systems: All systems reviewed & are unremarkable except as noted in HPI & below Physical Exam Constitutional: WD/WN, vitals as above Eyes: + anicteric sclerae ENMT: external ear and nose normal, oropharynx normal Neck: trachea midline, no thyromegaly Respiratory: normal respiratory effort Auscultation: + diminished lung sounds (At bases) and + crackles (Bibasilar) Cardiovascular: RRR, no murmur, no edema Chest (Breasts): Chest: normal inspection of chest Gastrointestinal (Abdomen): normal bowel sounds, soft, nontender, no hepatosplenomegaly Musculoskeletal: Extremities: extremities normal to inspection; no cyanosis and no clubbing Skin: + wound (Right forehead with small laceration with [address], clean dry and intact no erythema or drainage) Neurologic: moves all extremities and awake; no focal motor deficits Psychiatric: Orientation: alert, oriented to person and cooperative; + not oriented to place and + not oriented to time (Thinks it is June but does get the year right of 2019) Lymphatic: no lymphedema Results & Data ([facility]) Vital Signs (Past 12 Hours) Vital Signs Temp Pulse Pulse Resp BP Pulse Ox 08/11/19 11:25 36.5 C 66 18 130/62 99 08/11/19 07:47 36.4 C L 67 20 130/70 94 08/11/19 04:00 36.5 C 73 18 136/69 93 08/11/19 01:01 73 Laboratory Results Labs reviewed Blood culture 1 out of 2 with gram-positive cocci in chains PG Care Time/CCT Total # of Minutes Spent Total Time Spent with Patient: Total time spent is greater than 50% in coordination of care (as documented) at patient's floor/unit and/or counseling patient: Coding Level of Care Code 04686 Subseq Hosp Care Lvl 3 Diagnoses Aspiration pneumonia J69.0 Aspiration pneumonia type: unspecified Laterality: bilateral Lung location: lower lobe of lung Laceration Weakness R53.1 Bladder cancer C67.9 Bladder location: unspecified site GERD (gastroesophageal reflux disease) K21.9 Anemia D64.9 Anemia type: unspecified type Bacteremia R78.81 Gross hematuria R31.0 DVT prophylaxis Z29.9 (1) Bladder cancer Bladder location: unspecified site Qualified Code(s): C67.9 - Malignant neoplasm of bladder, unspecified (2) Anemia Anemia type: unspecified type Qualified Code(s): D64.9 - Anemia, unspecified (3) Aspiration pneumonia Aspiration pneumonia type: unspecified Laterality: bilateral Lung location: lower lobe of lung Qualified Code(s): J69.0 - Pneumonitis due to inhalation of food and vomit
--- NOTE | 2019-08-11 17:00 | Electrocardiogram Report ---
Test Reason : Blood Pressure : / mmHG Vent. Rate : 079 BPM Atrial Rate : 102 BPM P-R Int : 000 ms QRS Dur : 076 ms QT Int : 390 ms P-R-T Axes : 000 -30 042 degrees QTc Int : 447 ms Poor data quality, interpretation may be adversely affected Possible Sinus rhythm with sinus arrhythmia Left axis deviation Nonspecific T wave abnormality Cannot rule out Inferior infarct Abnormal ECG When compared with ECG of 26-JUN-2019 12:03, Artifact is now more evident Confirmed by Isaías Balderas ([id number]) on 08/11/2019 5:00:16 PM Referred By: Alanna Mcphersonemma Confirmed By:Isaías Balderas
[2019-08-12] MEDS: PIPERACILLIN/TAZOBACTAM 3.375 GM in DEXTROSE 5% 100 ML IV SCH ×3 (01:51→17:46)
[2019-08-12 07:41] LABS: Hematocrit (blood only) 25.4 % (42-52); Hemoglobin 8.9 g/dL (14.0-18.0); Mean Corpuscular Hemoglobin 31.9 pg (25-34); Mean Platelet Volume 8.4 fL (7.4-10.4); Platelet Count 152 K/uL (130-400); RDW Coefficient of Variation 15.8 % (11.5-14.5); RDW Standard Deviation 53.1 fL (36.4-46.3); Red Blood Count 2.79 M/uL (4.7-6.1)
[2019-08-12 08:04] LABS: BUN Creatinine Ratio 21.2 (10-20); Creatinine Clr Calc Pharmacy 74.2 ml/min; Est GFR (African American) 97.5; Est GFR (Non-African American) 84.1; Potassium 3.3 mmol/L (3.5-5.1)
[2019-08-12] MEDS: LIDOCAINE 5% 1 PATCH TD SCH (08:32)
[2019-08-12] MEDS: OMEGA-3 (PURIFIED FISH OIL) 1 GM CAP PO SCH ×2 (08:32→20:03)
[2019-08-12] MEDS: GABAPENTIN 300 MG CAP PO SCH ×3 (08:33→20:02)
[2019-08-12] MEDS: LOSARTAN POTASSIUM 50 MG TAB PO SCH (08:33)
[2019-08-12] MEDS: FAMOTIDINE 20 MG TAB PO SCH ×2 (08:33→20:03)
[2019-08-12] MEDS: CHOLECALCIFEROL 1,000 UNITS 25 MCG TAB PO SCH (08:33)
[2019-08-12] MEDS ORDERED: POTASSIUM CHLORIDE 20 MEQ TABCR PO STA (09:29)
[2019-08-12] MEDS: CEROVITE ADV FORMULA TAB PO SCH (10:42)
--- NOTE | 2019-08-12 14:59 | Hospitalist Progress Note ---
Date of Service August 12, 2019 Assessment & Plan (1) Aspiration pneumonia: Improving, not hypoxic, not coughing, no resp distress CXR with bibasilar infiltrates, R>L Evaluated by speech and no significant aspiration Now with Streptococcus species in BCxs--> could be Step pneumo community-a cquired pneumonia Continue IV Zosyn Follow-up on blood cultures-repeat blood cultures NGTD Continue PRN Duo nebs -dc IVFs (2) Bacteremia: Growing Step species in BCxs 1/2 sets from admission as above Continue Zosyn and follow sensitivities Follow repeat blood cultures-NGTD He will need at least 2 weeks of IV antibiotics most likely -Checked echocardiogram for valvular vegetation-none (3) Laceration: Sutured in the ED with 4 sutures right forehead-needs removal on or around 08/18-08/20 Wound care Has multiple skin tears all over arms and legs from falls--> all covered in OptiFoam (4) Weakness: PT/OT consults ordered-he is severely debilitated and PT recommends using mechanical lift for transfers Secondary to pneumonia, repeated hospitalizations, anemia (5) Bladder cancer: Receiving radiation treatment. last one was 07/27/2019 Due on Tuesday and has approximately 5 more treatments left With persistent mild hematuria To meet with medical oncology although does not seem like a good candidate for systemic chemotherapy Will need to contact Rad Onc Tuesday to let them know he is inpatient so can get his XRT (6) GERD (gastroesophageal reflux disease): Continue Pepcid (7) Anemia: Hemoglobin down to 7.5 after admission, with persistent hematuria in the setting of chronic anemia Transfused 2 units PRBCs and now hgb up to 8.9 Follow CBC in the morning (8) Gross hematuria: Secondary to bladder tumor, receiving radiation -Transfused as above -Follow CBC Follows with urology (9) Hypokalemia: mildly low replace with po KCl -follow BMP in AM (10) DVT prophylaxis: No SQ heparin due to hematuria and anemia SCDs Disposition-remain hospitalized, possibly back to [place] once cultures are finalized and may need US-guided IV placed for 2 week course of IV abx PT/OT recommend mechanical lift, no futher PT needed inpatient Case Management involved Can transfer to medical floor Subjective Pt has no complaints today. He asks "so what's next? I just hang out?" Denies SOB or cough, no pain anywhere. He is eating well. RN does not relay any problems. Remains afebrile Tele with NSR, rates in 70s Review of Systems Review of Systems: Unobtainable due to cognitive status Physical Exam Constitutional: WD/WN, vitals as above Eyes: + anicteric sclerae Neck: trachea midline, no thyromegaly Respiratory: normal respiratory effort Auscultation: + diminished lung sounds (At bases) and + crackles (Bibasilar) Cardiovascular: RRR, no murmur, no edema Chest (Breasts): Chest: normal inspection of chest Gastrointestinal (Abdomen): normal bowel sounds, soft, nontender, no hepa tosplenomegaly Musculoskeletal: Extremities: extremities normal to inspection; no cyanosis and no clubbing Skin: + wound (Right forehead with small laceration with [address], clean dry and intact no erythema or drainage) Neurologic: moves all extremities and awake; no focal motor deficits Psychiatric: Orientation: alert, oriented to person and cooperative Lymphatic: no lymphedema Results & Data ([facility]) Vital Signs (Past 12 Hours) Vital Signs Temp Pulse Pulse Pulse Resp BP Pulse Ox 08/12/19 08:49 66 08/12/19 07:30 36.6 C 79 18 159/66 H 95 08/12/19 04:35 81 138/72 08/12/19 04:18 72 129/64 08/12/19 04:00 36.9 C 76 20 172/89 H 97 Laboratory Results 08/12/19 08/12/19 08/11/19 Range/Units 07:23 07:23 12:15 WBC 5.90 (4.8-10.8) K/uL RBC 2.79 L (4.7-6.1) M/uL Hgb 8.9 L (14.0-18.0) g/dL Hct 25.4 L (42-52) % MCV 91.0 (80-100) fL MCH 31.9 (25-34) pg MCHC 35.0 (32-36) g/dL RDW Std Deviation 53.1 H (36.4-46.3) fL RDW Coeff of Jesse 15.8 H (11.5-14.5) % Plt Count 152 (130-400) K/uL MPV 8.4 (7.4-10.4) fL Sodium 138 (136-145) mmol/L Potassium 3.3 L (3.5-5.1) mmol/L Chloride 105 (98-107) mmol/L Carbon Dioxide 27 (21-32) mmol/L Anion Gap 6.0 (3-11) BUN 16 (7-18) mg/dl Creatinine 0.74 (0.6-1.4) mg/dl Est Cr Clr Drug Dosing 74.2 ml/min Est GFR ( Amer) 97.5 Est GFR (Non-Af Amer) 84.1 BUN/Creatinine Ratio 21.2 H (10-20) Glucose 80 (70-99) mg/dl Calcium 8.0 L (8.5-10.1) mg/dl Crossmatch See Detail PG Care Time/CCT Total # of Minutes Spent Total Time Spent with Patient: Total time spent is greater than 50% in coordination of care (as documented) at patient's floor/unit and/or counseling patient: Coding Level of Care Code 06989 Subseq Hosp Care Lvl 2 Diagnoses Aspiration pneumonia J69.0 Aspiration pneumonia type: unspecified Laterality: bilateral Lung location: lower lobe of lung Bacteremia R78.81 Laceration Weakness R53.1 Bladder cancer C67.9 Bladder location: unspecified site GERD (gastroesophageal reflux disease) K21.9 Anemia D64.9 Anemia type: unspecified type Gross hematuria R31.0 Hypokalemia E87.6 DVT prophylaxis Z29.9 (1) Bladder cancer Bladder location: unspecified site Qualified Code(s): C67.9 - Malignant neoplasm of bladder, unspecified (2) Anemia Anemia type: unspecified type Qualified Code(s): D64.9 - Anemia, unspecified (3) Aspiration pneumonia Aspiration pneumonia type: unspecified Laterality: bilateral Lung location: lower lobe of lung Qualified Code(s): J69.0 - Pneumonitis due to inhalation of food and vomit
--- NOTE | 2019-08-12 16:33 | XCELERA ---
[id number] \\[email or web address]\[id number]_[id number]
[2019-08-12] MEDS ORDERED: bisacodyL 10 MG SUPP PR PRN (22:11)
[2019-08-13] MEDS: PIPERACILLIN/TAZOBACTAM 3.375 GM in DEXTROSE 5% 100 ML IV SCH ×3 (01:06→18:21)
[2019-08-13 06:59] LABS: Basophils # (auto) 0.01 K/uL (0-0.2); Basophils % (auto) 0.2 %; Eosinophils # (auto) 0.14 K/uL (0-0.5); Eosinophils % (auto) 2.3 %; Hematocrit (blood only) 28.3 % (42-52); Hemoglobin 9.6 g/dL (14.0-18.0); Immature Granulocytes # (auto) 0.01 K/uL (0.00-0.02); Immature Granulocytes % (auto) 0.2 %; Lymphocytes # (auto) 0.32 K/uL (1.2-3.4); Lymphocytes % (auto) 5.2 %; Mean Corpuscular Hemoglobin 31.1 pg (25-34); Mean Corpuscular Hgb Conc 33.9 g/dL (32-36); Mean Corpuscular Volume 91.6 fL (80-100); Mean Platelet Volume 8.4 fL (7.4-10.4); Monocytes # (auto) 0.49 K/uL (0.11-0.59); Monocytes % (auto) 7.9 %; Neutrophils # (auto) 5.23 K/uL (1.4-6.5); Neutrophils % (auto) 84.2 %; Platelet Count 151 K/uL (130-400); RDW Coefficient of Variation 15.8 % (11.5-14.5); RDW Standard Deviation 52.9 fL (36.4-46.3); Red Blood Count 3.09 M/uL (4.7-6.1)
[2019-08-13 07:22] LABS: BUN Creatinine Ratio 15.8 (10-20); Calcium 8.1 mg/dl (8.5-10.1); Creatinine Clr Calc Pharmacy 68.6 ml/min; Est GFR (African American) 94.4; Est GFR (Non-African American) 81.5; Magnesium 1.5 mg/dl (1.8-2.4); Potassium 3.6 mmol/L (3.5-5.1)
[2019-08-13] MEDS: LOSARTAN POTASSIUM 50 MG TAB PO SCH (08:10)
[2019-08-13] MEDS: CEROVITE ADV FORMULA TAB PO SCH (08:10)
[2019-08-13] MEDS: GABAPENTIN 300 MG CAP PO SCH ×3 (08:10→20:57)
[2019-08-13] MEDS: FAMOTIDINE 20 MG TAB PO SCH ×2 (08:11→20:58)
[2019-08-13] MEDS: CHOLECALCIFEROL 1,000 UNITS 25 MCG TAB PO SCH (08:11)
[2019-08-13] MEDS: OMEGA-3 (PURIFIED FISH OIL) 1 GM CAP PO SCH ×2 (08:12→20:57)
[2019-08-13] MEDS: LIDOCAINE 5% 1 PATCH TD SCH (08:14)
[2019-08-13] MEDS ORDERED: HydrALAZINE HCL 20 MG/ML VIAL IV PRN (15:12)
--- NOTE | 2019-08-13 19:56 | Hospitalist Progress Note ---
Date of Service August 13, 2019 Assessment & Plan (1) Aspiration pneumonia: - Improving, not hypoxic, not coughing, no resp distress - CXR with bibasilar infiltrates, R>L - Evaluated by speech and no significant aspiration - Streptococcus species and Enterococcus faecalis in BCxs (1 of 2) -- Await sensitivities for strept species - Continue IV Zosyn - Follow-up on blood cultures-repeat blood cultures NGTD - Continue PRN Duo nebs (2) Bacteremia: - Growing Step species and Enterococcus faecalis in BCxs 1/2 sets from admission as above - Continue Zosyn and follow sensitivities - Follow repeat blood cultures-NGTD - He will need at least 2 weeks of IV antibiotics most likely - Checked echocardiogram for valvular vegetation-none (3) Laceration: - Sutured in the ED with 4 sutures right forehead - needs removal on or around 08/18-08/20 - Wound care - Has multiple skin tears all over arms and legs from falls--> covered in OptiFoam (4) Weakness: - PT/OT consults ordered-he is severely debilitated and PT recommends using mechanical lift for transfers - Secondary to pneumonia, repeated hospitalizations, anemia (5) Bladder cancer: - Receiving radiation treatment; last dose 07/27 will have to re-arrange with Rad Onc - only about 5 more treatments left - With persistent mild hematuria - To meet with medical oncology although does not seem like a good candidate for systemic chemotherapy (6) GERD (gastroesophageal reflux disease): - Continue Pepcid (7) Anemia: - Hemoglobin down to 7.5 after admission, with persistent hematuria in the setting of chronic anemia - Would say this is a chronic blood loss anemia given the persistent hematuria but ultimately has required transfusion support this admission as well as last - Transfused 2 units PRBCs and Hgb improved - will monitor - Follow CBC in the morning (8) Gross hematuria: - Secondary to bladder tumor, receiving radiation -Transfused as above; follow CBC - Follows with urology (9) DVT prophylaxis: DVT - no chemoprophylaxis given hematuria; SCDs Disposition: Await cultures - is a bed hold at [facility]. Likely U/S guided IV for 2 weeks course of IV Abx -- PT/OT - recommend mechanical lift, no further PT needed inpatient Subjective Patient is alert and oriented only to self. However calm and cooperative and looks overall well. I took care of this gentleman on a previous admission and he looks physically much better than that previous admission. Upon entering the room his only concern was obtaining his season tickets for the [employer] football game. He states his is somewhere around the corner and she is obtaining the tickets. He has an RV and would like to start tailgating prior to the game. He is rather fixated on this conversation. When talking about his breathing he states they are still working things out but he is doing a lot better. Per notes, it appears he largely is only alert to self. He verbalizes no other complaints. Review of Systems Review of Systems: Limited due to orientation only to self as he thinks he is awaiting [employer] tickets to go tailgating. He states his coughing is improving but still present. He denies any pain. Physical Exam Constitutional: WD/WN, vitals as above Eyes: + anicteric sclerae ENMT: Ears: + hearing impairment Neck: trachea midline Respiratory: normal respiratory effort Auscultation: + diminished lung sounds Cardiovascular: RRR, no murmur, no edema Gastrointestinal (Abdomen): Inspection/Auscultation: normal bowel sounds Percussion/Palpation: abdomen soft; abdomen nontender Musculoskeletal: Head/Neck/Chest: normocephalic and head atraumatic Skin: no rashes, warm and dry Small laceration noted to right forehead with sutures in place; no erythema or drainage noted at this time Neurologic: moves all extremities Psychiatric: Orientation: alert and oriented to person Eye Contact: good eye contact Affect: euthymic affect Results & Data ([facility]) Vital Signs (Past 12 Hours) Vital Signs Temp Pulse Resp BP BP Pulse Ox 08/13/19 16:50 147/72 H 08/13/19 15:02 36.7 C 69 20 170/72 H 180/86 H 99 PG Care Time/CCT Total # of Minutes Spent Total Time Spent with Patient: Total time spent is greater than 50% in coordination of care (as documented) at patient's floor/unit and/or counseling patient: Coding Level of Care Code 11586 Subseq Hosp Care Lvl 3 Diagnoses Aspiration pneumonia J69.0 Aspiration pneumonia type: unspecified Laterality: bilateral Lung location: lower lobe of lung Bacteremia R78.81 Laceration Weakness R53.1 Bladder cancer C67.9 Bladder location: unspecified site GERD (gastroesophageal reflux disease) K21.9 Anemia D64.9 Anemia type: unspecified type Gross hematuria R31.0 DVT prophylaxis Z29.9 (1) Aspiration pneumonia Aspiration pneumonia type: unspecified Laterality: bilateral Lung location: lower lobe of lung Qualified Code(s): J69.0 - Pneumonitis due to inhalation of food and vomit (2) Bladder cancer Bladder location: unspecified site Qualified Code(s): C67.9 - Malignant neoplasm of bladder, unspecified (3) Anemia Anemia type: unspecified type Qualified Code(s): D64.9 - Anemia, unspecified
[2019-08-14] MEDS: PIPERACILLIN/TAZOBACTAM 3.375 GM in DEXTROSE 5% 100 ML IV SCH ×3 (01:33→17:56)
[2019-08-14 07:19] LABS: Hematocrit (blood only) 27.7 % (42-52); Hemoglobin 9.6 g/dL (14.0-18.0); Mean Corpuscular Hemoglobin 31.9 pg (25-34); Mean Corpuscular Hgb Conc 34.7 g/dL (32-36); Mean Platelet Volume 8.7 fL (7.4-10.4); Platelet Count 133 K/uL (130-400); RDW Coefficient of Variation 15.4 % (11.5-14.5); Red Blood Count 3.01 M/uL (4.7-6.1); White Blood Count 5.17 K/uL (4.8-10.8)
[2019-08-14 07:45] LABS: BUN Creatinine Ratio 13.9 (10-20); Calcium 8.1 mg/dl (8.5-10.1); Creatinine Clr Calc Pharmacy 73.2 ml/min; Est GFR (African American) 96.9; Est GFR (Non-African American) 83.6; Potassium 3.5 mmol/L (3.5-5.1)
[2019-08-14] MEDS: LIDOCAINE 5% 1 PATCH TD SCH (08:18)
[2019-08-14] MEDS: CEROVITE ADV FORMULA TAB PO SCH (08:19)
[2019-08-14] MEDS: OMEGA-3 (PURIFIED FISH OIL) 1 GM CAP PO SCH ×2 (08:21→20:15)
[2019-08-14] MEDS: FAMOTIDINE 20 MG TAB PO SCH ×2 (08:21→20:15)
[2019-08-14] MEDS: GABAPENTIN 300 MG CAP PO SCH ×3 (08:21→20:14)
[2019-08-14] MEDS: CHOLECALCIFEROL 1,000 UNITS 25 MCG TAB PO SCH (08:21)
[2019-08-14] MEDS: LOSARTAN POTASSIUM 50 MG TAB PO SCH (08:21)
--- NOTE | 2019-08-14 14:39 | Hospitalist Progress Note ---
Date of Service August 14, 2019 Assessment & Plan (1) Aspiration pneumonia: - Improving, not hypoxic, not coughing, no resp distress - CXR with bibasilar infiltrates, R>L - Evaluated by speech and no significant aspiration - Streptococcus species and Enterococcus faecalis in BCxs (1 of 2) -- Await sensitivities for strept species - Continue IV Zosyn - Follow-up on blood cultures-repeat blood cultures NGTD - Continue PRN Duo nebs (2) Bacteremia: - Growing Step species and Enterococcus faecalis in BCxs 1/2 sets from admission as above - Continue Zosyn and follow sensitivities - Follow repeat blood cultures-NGTD - He will need at least 2 weeks of IV antibiotics most likely - Checked echocardiogram for valvular vegetation-none (3) Laceration: - Sutured in the ED with 4 sutures right forehead - needs removal on or around 08/18-08/20 - Wound care - Has multiple skin tears all over arms and legs from falls--> covered in OptiFoam (4) Weakness: - PT/OT consults ordered-he is severely debilitated and PT recommends using mechanical lift for transfers - Secondary to pneumonia, repeated hospitalizations, anemia (5) Bladder cancer: - Receiving radiation treatment; only about 5 more treatments left - With persistent mild hematuria - To meet with medical oncology although does not seem like a good candidate for systemic chemotherapy - Discussed with Dr. Harvey (Rad Onc) - will go for radiation on 08/14 (6) GERD (gastroesophageal reflux disease): - Continue Pepcid (7) Anemia: - Hemoglobin down to 7.5 after admission, with persistent hematuria in the setting of chronic anemia - Would say this is a chronic blood loss anemia given the persistent hematuria but ultimately has required transfusion support this admission as well as last - Transfused 2 units PRBCs and Hgb improved - will monitor - Follow CBC in the morning (8) Gross hematuria: - Secondary to bladder tumor, receiving radiation -Transfused as above; follow CBC - Follows with urology (9) DVT prophylaxis: DVT - no chemoprophylaxis given hematuria; SCDs Disposition: Await cultures - is a bed hold at [facility]. Likely U/S guided IV for 2 weeks course of IV Abx -- PT/OT - recommend mechanical lift, no further PT needed inpatient Subjective Patient was sleeping upon entering the room. He easily awakens and answers qu estions but does fall back asleep. He states he is feeling good and that his coughing is getting better. Discussed with Dr. Harvey from [facility] and they will get him on the schedule for his next session today. Still awaiting streptococcus identification/sensitivities Review of Systems Review of Systems: limited due to sleepiness. Denies pain and reports no SOB and cough improving Physical Exam Constitutional: WD/WN, vitals as above Eyes: + anicteric sclerae ENMT: Ears: + hearing impairment Neck: trachea midline Respiratory: normal respiratory effort Auscultation: + diminished lung sounds Cardiovascular: RRR, no murmur, no edema Gastrointestinal (Abdomen): Inspection/Auscultation: normal bowel sounds Percussion/Palpation: abdomen soft; abdomen nontender Musculoskeletal: Head/Neck/Chest: normocephalic and head atraumatic Skin: no rashes, warm and dry Neurologic: moves all extremities Psychiatric: Orientation: alert (but easily falls back to sleep) and oriented to person Results & Data ([facility]) Vital Signs (Past 12 Hours) Vital Signs Temp Pulse Resp BP Pulse Ox 08/14/19 06:42 36.5 C 63 18 153/68 H 98 PG Care Time/CCT Total # of Minutes Spent Total Time Spent with Patient: Total time spent is greater than 50% in coordination of care (as documented) at patient's floor/unit and/or counseling patient: Coding Level of Care Code 63802 Subseq Hosp Care Lvl 2 Diagnoses Aspiration pneumonia J69.0 Aspiration pneumonia type: unspecified Laterality: bilateral Lung location: lower lobe of lung Bacteremia R78.81 Laceration Weakness R53.1 Bladder cancer C67.9 Bladder location: unspecified site GERD (gastroesophageal reflux disease) K21.9 Anemia D64.9 Anemia type: unspecified type Gross hematuria R31.0 DVT prophylaxis Z29.9 (1) Aspiration pneumonia Aspiration pneumonia type: unspecified Laterality: bilateral Lung location: lower lobe of lung Qualified Code(s): J69.0 - Pneumonitis due to inhalation of food and vomit (2) Bladder cancer Bladder location: unspecified site Qualified Code(s): C67.9 - Malignant neoplasm of bladder, unspecified (3) Anemia Anemia type: unspecified type Qualified Code(s): D64.9 - Anemia, unspecified
[2019-08-15] MEDS: PIPERACILLIN/TAZOBACTAM 3.375 GM in DEXTROSE 5% 100 ML IV SCH ×3 (02:07→18:13)
[2019-08-15 06:49] LABS: Creatinine Clr Calc Pharmacy 72.2 ml/min; Est GFR (African American) 96.4; Est GFR (Non-African American) 83.2
[2019-08-15] MEDS: LIDOCAINE 5% 1 PATCH TD SCH (08:33)
[2019-08-15] MEDS: GABAPENTIN 300 MG CAP PO SCH ×3 (08:34→20:59)
[2019-08-15] MEDS: LOSARTAN POTASSIUM 50 MG TAB PO SCH (08:34)
[2019-08-15] MEDS: OMEGA-3 (PURIFIED FISH OIL) 1 GM CAP PO SCH ×2 (08:34→20:59)
[2019-08-15] MEDS: CEROVITE ADV FORMULA TAB PO SCH (08:34)
[2019-08-15] MEDS: CHOLECALCIFEROL 1,000 UNITS 25 MCG TAB PO SCH (08:34)
[2019-08-15] MEDS: FAMOTIDINE 20 MG TAB PO SCH ×2 (08:34→20:59)
--- NOTE | 2019-08-15 12:58 | Hospitalist Progress Note ---
Date of Service August 15, 2019 Assessment & Plan (1) Aspiration pneumonia: - CXR with bibasilar infiltrates, R>L. - No significant aspiration noted per speech therapy. - Continue Zosyn IV -- will likely need 2 week course due to +blood cultures. - Duonebs q4hr prn SOB/wheezing. (2) Bacteremia: - BC 08/10 +Enterococcus faecalis and Streptococcus species. - Repeat BC on 08/11 negative to date. - Continue Zosyn IV as noted above, follow sensitivities. - Transthoracic echo negative for vegetation, consider FERNANDEZ. - Will likely require placement of US guided PIV prior to discharge to SNF for course of IV abx. (3) Metabolic encephalopathy: - Pt. appears slightly confused -- likely related to hospital delirium. - Treatment of pneumonia/bacteremia as noted above. - Continue to re-orient frequently; consider head imaging if no improvement. (4) Laceration: - Sutured in the ED with 4 sutures right forehead - needs removal on or around after 08/18/19. - Has multiple skin tears all over arms and legs from falls--> covered in OptiFoam (5) Weakness: - PT/OT consults - severely debilitated and PT recommends using mechanical lift for transfers - Secondary to pneumonia, repeated hospitalizations, anemia - Plan for discharge to [facility] once medically stable. (6) Bladder cancer: - Follows with Dr. Sierra, Dr. Sweet and Dr. Seals. - Receiving radiation treatment; resumed RT on 08/14/19, likely has 3-4 fractions remaining. - F/u with medical oncologist to discuss starting systemic chemotherapy. (7) GERD (gastroesophageal reflux disease): - Continue Pepcid BID. (8) Anemia: - Hemoglobin trended down in setting of persistent hematuria in the setting of chronic anemia. - Transfused 2 units pRBCs, H/H is stable. - Monitor labs intermittently. (9) Gross hematuria: - Secondary to bladder tumor & radiation therapy. - Follows with urology. Expect improvement in bleeding with completion of RT. (10) HTN (hypertension): - Continue home Losartan as prescribed. (11) Acute CVA (cerebrovascular accident): - Admitted in June 2019 -- had acute lacunar infarct in left parietal lobe & multiple chronic bilateral cerebellar hemispheric infarcts. - Holding ASA due to hematuria; no indication for statin agent per most recent lipid panel. 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 - No indication for statin and aspirin therapy -- see above. - Would not be operable candidate. (13) DVT prophylaxis: - SCDs; holding pharmacologic ppx in setting of acute hematuria. Dispo: Med/surg; discharge pending repeat BC -- can likely return to [facility] over next 24 hours with course of IV abx. Subjective Pt. is doing well overall. Remains confused at times, is alert to person and place. Denies fatigue, SOB, chest pain. Review of Systems Review of Systems: All systems reviewed & are unremarkable except as noted in HPI & below Constitutional: no fever, no chills, no fatigue, no weakness and no anorexia Respiratory: no cough, no dyspnea and no dyspnea on exertion Cardiovascular: no chest pain, no palpitations and no edema Gastrointestinal: no abdominal pain, no nausea, no vomiting and no constipation Genitourinary: no difficulty urinating Musculoskeletal: no back pain and no joint pain Integumentary: no non-healing lesions Physical Exam Physical Exam: General: Resting comfortably HEENT: NC/AT; PERRLA with EOMI; [place] conjunctiva, MMM. No erythema of posterior pharynx Neck: Supple and nontender Cardiac: RRR Lungs: CTA bilaterally Abdomen: Bowel normoactive X 4; Nontender to palpation Extremities: Warm. No edema present Neuro: No focal weakness; mild confusion noted on exam but is alert to person/place. Skin: No rash Results & Data ([facility]) Vital Signs (Past 12 Hours) Vital Signs Temp Pulse Resp BP Pulse Ox 08/15/19 07:29 36.7 C 55 L 18 137/68 93 Laboratory Results 08/15/19 Range/Units 06:06 Creatinine 0.76 (0.6-1.4) mg/dl Est Cr Clr Drug Dosing 72.2 ml/min Est GFR ( Amer) 96.4 Est GFR (Non-Af Amer) 83.2 PG Care Time/CCT Total # of Minutes Spent Total Time Spent with Patient: Total time spent is greater than 50% in coordination of care (as documented) at patient's floor/unit and/or counseling patient: Coding Level of Care Code 91399 Subseq Hosp Care Lvl 2 Diagnoses Aspiration pneumonia J69.0 Aspiration pneumonia type: unspecified Laterality: bilateral Lung location: lower lobe of lung Bacteremia R78.81 Metabolic encephalopathy G93.41 Laceration Weakness R53.1 Bladder cancer C67.9 Bladder location: unspecified site GERD (gastroesophageal reflux disease) K21.9 Anemia D64.9 Anemia type: unspecified type Gross hematuria R31.0 HTN (hypertension) I10 Acute CVA (cerebrovascular accident) I63.9 Right carotid artery occlusion I65.21 DVT prophylaxis Z29.9 (1) Bladder cancer Bladder location: unspecified site Qualified Code(s): C67.9 - Malignant neoplasm of bladder, unspecified (2) Anemia Anemia type: unspecified type Qualified Code(s): D64.9 - Anemia, unspecified (3) Aspiration pneumonia Aspiration pneumonia type: unspecified Laterality: bilateral Lung location: lower lobe of lung Qualified Code(s): J69.0 - Pneumonitis due to inhalation of food and vomit
[2019-08-16] MEDS: PIPERACILLIN/TAZOBACTAM 3.375 GM in DEXTROSE 5% 100 ML IV SCH ×2 (02:05→09:44)
[2019-08-16 07:20] VITALS: O2SAT 96
[2019-08-16 07:29] LABS: Hematocrit (blood only) 27.4 % (42-52); Hemoglobin 9.6 g/dL (14.0-18.0); Mean Corpuscular Volume 91.3 fL (80-100); Mean Platelet Volume 8.5 fL (7.4-10.4); Platelet Count 150 K/uL (130-400); RDW Coefficient of Variation 15.1 % (11.5-14.5); RDW Standard Deviation 50.4 fL (36.4-46.3); White Blood Count 5.83 K/uL (4.8-10.8)
[2019-08-16 08:01] LABS: BUN Creatinine Ratio 13.1 (10-20); Calcium 8.2 mg/dl (8.5-10.1); Creatinine Clr Calc Pharmacy 76.2 ml/min; Est GFR (African American) 98.6; Est GFR (Non-African American) 85.1; Potassium 3.2 mmol/L (3.5-5.1)
[2019-08-16] MEDS ORDERED: POTASSIUM CHLORIDE 20 MEQ TABCR PO STA (08:06)
[2019-08-16] MEDS: FAMOTIDINE 20 MG TAB PO SCH (08:15)
[2019-08-16] MEDS: CEROVITE ADV FORMULA TAB PO SCH (08:15)
[2019-08-16] MEDS: GABAPENTIN 300 MG CAP PO SCH ×2 (08:15→14:48)
[2019-08-16] MEDS: LOSARTAN POTASSIUM 50 MG TAB PO SCH (08:15)
[2019-08-16] MEDS: OMEGA-3 (PURIFIED FISH OIL) 1 GM CAP PO SCH (08:15)
[2019-08-16] MEDS: CHOLECALCIFEROL 1,000 UNITS 25 MCG TAB PO SCH (08:16)
[2019-08-16] MEDS: LIDOCAINE 5% 1 PATCH TD SCH (08:16)
--- NOTE | 2019-08-16 13:54 | Hospitalist Progress Note ---
Date of Service August 16, 2019 Assessment & Plan (1) Aspiration pneumonia: - CXR with bibasilar infiltrates, R>L. - No significant aspiration noted per speech therapy. - Continue Zosyn IV -- will likely need 2 week course of abx due to +blood cultures. - Duonebs q4hr prn SOB/wheezing. (2) Bacteremia: - BC 08/10 +Enterococcus faecalis and Streptococcus species. - Repeat BC on 08/11 negative to date. - Continue Zosyn IV as noted above, follow sensitivities for Streptococcus. - Transthoracic echo negative for vegetation, consider FERNANDEZ. - Will likely require placement of US guided PIV prior to discharge to SNF for course of IV abx. (3) Metabolic encephalopathy: - Pt. is intermittently confused -- likely related to hospital delirium. - Treatment of pneumonia/bacteremia as noted above. - Re-orient frequently; consider head imaging. (4) Laceration: - Sutured in the ED with 4 sutures right forehead - needs removal on or around after 08/18/19. - Has multiple skin tears all over arms and legs from falls--> covered in OptiFoam (5) Weakness: - PT/OT consults - severely debilitated and PT recommends using mechanical lift for transfers - Secondary to pneumonia, repeated hospitalizations, anemia - Plan for discharge to [facility] once medically stable. (6) Bladder cancer: - Follows with Dr. Sierra, Dr. Sweet and Dr. Seals. - Receiving radiation treatment; resumed RT on 08/14/19, minimal fractions remaining. - F/u with medical oncologist to discuss starting systemic chemotherapy. (7) GERD (gastroesophageal reflux disease): - Continue Pepcid BID. (8) Anemia: - Hemoglobin trended down in setting of persistent hematuria in the setting of chronic anemia. - Transfused 2 units pRBCs, H/H is stable. - Monitor labs intermittently. (9) Gross hematuria: - Secondary to bladder tumor & radiation therapy. Hematuria is now improving. - Follows with urology. Expect improvement in bleeding with completion of RT. (10) HTN (hypertension): - Continue home Losartan as prescribed. (11) Acute CVA (cerebrovascular accident): - Admitted in June 2019 -- had acute lacunar infarct in left parietal lobe & multiple chronic bilateral cerebellar hemispheric infarcts. - Holding ASA due to recent hematuria; no indication for statin agent per most recent lipid panel. 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 - No indication for statin and aspirin therapy -- see above. - Would not be operable candidate. (13) DVT prophylaxis: - SCDs; holding pharmacologic ppx in setting of recent hematuria. K level 3.2, Mag level 1.6 - ordered K 40 mEq PO and Mag 2 gm IV. Dispo: Med/surg; discharge pending Streptococcus sensitivities -- can likely return to [facility] over next 24-48 hours with course of PO vs. IV abx. Subjective Pt. is doing well overall. Is having bowel movements. Has mild confusion at times related to hospital delirium. Review of Systems Review of Systems: All systems reviewed & are unremarkable except as noted in HPI & below Constitutional: no fever, no chills, no fatigue and no weakness Respiratory: no cough, no dyspnea and no dyspnea on exertion Cardiovascular: no chest pain, no palpitations and no edema Gastrointestinal: no abdominal pain, no nausea, no vomiting and no constipation Genitourinary: no difficulty urinating Musculoskeletal: no back pain and no joint pain Integumentary: no non-healing lesions Physical Exam Physical Exam: General: Resting comfortably HEENT: NC/AT; PERRLA with EOMI; [place] conjunctiva, MMM. No erythema of posterior pharynx Neck: Supple and nontender Cardiac: RRR Lungs: CTA bilaterally Abdomen: Bowel normoactive X 4; Nontender to palpation Extremities: Warm. No edema present Neuro: No focal weakness; mild confusion noted. Skin: No rash Results & Data ([facility]) Vital Signs (Past 12 Hours) Vital Signs Temp Pulse Resp BP Pulse Ox 08/16/19 07:19 36.5 C 74 16 145/67 H 96 Laboratory Results 08/16/19 08/16/19 08/16/19 Range/Units 06:42 06:42 06:42 WBC 5.83 (4.8-10.8) K/uL RBC 3.00 L (4.7-6.1) M/uL Hgb 9.6 L (14.0-18.0) g/dL Hct 27.4 L (42-52) % MCV 91.3 (80-100) fL MCH 32.0 (25-34) pg MCHC 35.0 (32-36) g/dL RDW Std Deviation 50.4 H (36.4-46.3) fL RDW Coeff of Jesse 15.1 H (11.5-14.5) % Plt Count 150 (130-400) K/uL MPV 8.5 (7.4-10.4) fL Sodium 135 L (136-145) mmol/L Potassium 3.2 L (3.5-5.1) mmol/L Chloride 103 (98-107) mmol/L Carbon Dioxide 26 (21-32) mmol/L Anion Gap 6.0 (3-11) BUN 9 (7-18) mg/dl Creatinine 0.72 (0.6-1.4) mg/dl Est Cr Clr Drug Dosing 76.2 ml/min Est GFR ( Amer) 98.6 Est GFR (Non-Af Amer) 85.1 BUN/Creatinine Ratio 13.1 (10-20) Glucose 79 (70-99) mg/dl Calcium 8.2 L (8.5-10.1) mg/dl Magnesium 1.6 L (1.8-2.4) mg/dl PG Care Time/CCT Total # of Minutes Spent Total Time Spent with Patient: Total time spent is greater than 50% in coordination of care (as documented) at patient's floor/unit and/or counseling patient: Coding Level of Care Code None Diagnoses Aspiration pneumonia J69.0 Aspiration pneumonia type: unspecified Laterality: bilateral Lung location: lower lobe of lung Bacteremia R78.81 Metabolic encephalopathy G93.41 Laceration Weakness R53.1 Bladder cancer C67.9 Bladder location: unspecified site GERD (gastroesophageal reflux disease) K21.9 Anemia D64.9 Anemia type: unspecified type Gross hematuria R31.0 HTN (hypertension) I10 Acute CVA (cerebrovascular accident) I63.9 Right carotid artery occlusion I65.21 DVT prophylaxis Z29.9 (1) Bladder cancer Bladder location: unspecified site Qualified Code(s): C67.9 - Malignant neoplasm of bladder, unspecified (2) Anemia Anemia type: unspecified type Qualified Code(s): D64.9 - Anemia, unspecified (3) Aspiration pneumonia Aspiration pneumonia type: unspecified Laterality: bilateral Lung location: lower lobe of lung Qualified Code(s): J69.0 - Pneumonitis due to inhalation of food and vomit
[2019-08-16] MEDS: MAGNESIUM SULFATE / D5W 1 GM/100 ML BAG IV SCH ×2 (14:46→15:56)
[2019-08-16 15:30] VITALS: PULSE 75; TEMP 97.9
--- NOTE | 2019-08-16 15:52 | Discharge Summary ---
Date of Service August 16, 2019 Admission HPI Per Admitting Provider 83 y/o male presented to the ED who presents to the ED with retirement reporting increased weakness and declining cognitive status. He apparently fell the previous night and struck his head. He reports that he lost balance. No loss of consciousness reported. He has mild right side of head pain. No F/C, cough, chest pain, dysuria per patient. Admission Exam Per Admitting Provider General- adult male, NAD Head- atraumatic. 2.5 cm laceration above right forehead, sutured, no active bleeding. Eyes- PERRL, EOMI, anicteric ENT- oropharynx clear Neck- supple, no JVD, no adenopathy, no thyromegaly. Lungs- Decreased breath sounds b/l bases, No wheezes, rales or rhonchi Heart- regular rhythm; no murmur, no gallop, no rub appreciated Abdomen- normal bowel sounds, soft, nontender. Extremities- no pretibial edema, no calf tenderness; peripheral pulses intact Neuro- alert, oriented to person, place (hospital was answer) and year; CN's II- XII grossly intact, non-focal. SKIN - bruises noted to arms b/l. Principal Diagnosis Pneumonia/Bacteremia Discharge Exam General: Resting comfortably HEENT: NC/AT; PERRLA with EOMI; [place] conjunctiva, MMM. No erythema of posterior pharynx Neck: Supple and nontender Cardiac: RRR Lungs: CTA bilaterally Abdomen: Bowel normoactive X 4; Nontender to palpation Extremities: Warm. No edema present Neuro: No focal weakness; mild confusion noted. Skin: No rash Discharge Data Allergies Allergy/AdvReac Type Severity Reaction Status Date / Time Cephalosporins Allergy Mild RASH Verified 08/10/19 17:18 tetracycline Allergy Mild Rash Verified 08/10/19 17:18 Consultations 08/10/19 19:55 ED Decision to Admit Stat Ordered Studies 08/10/19 17:29 CT cervical spine wo con Stat CT head/brain wo con Stat Hospital Course (1) Aspiration pneumonia: CXR with bibasilar infiltrates, R>L. No significant aspiration noted per speech therapy. Received Zosyn IV as inpt; will convert to Amoxicillin 500 mg TID at discharge, will need to complete 10 day course as outpatient. Duonebs q4hr prn SOB/wheezing. (2) Bacteremia: BC 1/31 +Enterococcus faecalis and Streptococcus species. Repeat BC on 08/11 negative to date. Received Zosyn IV as noted above; BC showed two organisms, both +Enterococcus. Can convert to Amoxicillin PO x 10 days. Transthoracic echo negative for vegetation, consider FERNANDEZ. (3) Metabolic encephalopathy: Pt. is intermittently confused -- likely related to hospital delirium. Treatment of pneumonia/bacteremia as noted above. Re-oriented frequently. (4) Laceration: Sutured in the ED with 4 sutures right forehead - needs removal on or around after 08/18/19. Has multiple skin tears all over arms and legs from falls--> covered in OptiFoam (5) Weakness: PT/OT consults - severely debilitated and PT recommends using mechanical lift for transfers Secondary to pneumonia, repeated hospitalizations, anemia Discharge to [facility]. (6) Bladder cancer: Follows with Dr. Sierra, Dr. Sweet and Dr. Seals. Receiving radiation treatment; resumed RT on 08/14/19, minimal fractions remaining. F/u with medical oncologist to discuss starting systemic chemotherapy. (7) GERD (gastroesophageal reflux disease): Pepcid BID. (8) Anemia: Hemoglobin trended down in setting of persistent hematuria in the setting of chronic anemia. Transfused 2 units pRBCs, H/H is stable. Monitored labs intermittently. (9) Gross hematuria: Secondary to bladder tumor & radiation therapy. Hematuria is now improving. Follows with urology. (10) HTN (hypertension): Continued home Losartan as prescribed. (11) Acute CVA (cerebrovascular accident): Admitted in June 2019 -- had acute lacunar infarct in left parietal lobe & multiple chronic bilateral cerebellar hemispheric infarcts. Held ASA due to recent hematuria; no indication for statin agent per most recent lipid panel. 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 No indication for statin and aspirin therapy -- see above. Would not be operable candidate. Total Time Total Time Spent Total Time Spent (In Minutes): >30 minutes Total Time Includes: Examination of the Patient, Discharge Planning, Medication Reconciliation, Communication With Other Providers and Other Discharge Plan Discharge Items Patient Disposition: Transfer Residential Fac Reason For Visit: PNEUMONIA Discharge Diagnosis: Aspiration pneumonia, Bacteremia Condition on Discharge: Fair Goals: You have been hospitalized for an acute medical problem. During your stay at [facility], we have made an effort to correct the problem that brought you to the hospital while keeping you as comfortable as possible. Medications were used to bring your condition under control and your discharge instructions will include directions for any medications you should take after leaving the hospital. Please make sure you see your Primary Care Provider as part of your follow up plan. Activity: As commented below Exercise/Sports: Gradually increase as tolerated Non-emergency contact: Primary Care Provider Call non-emergency contact if: you have any medication questions, your symptoms worsen and you have a fever Follow-up/Referrals: Alanna Payne [Primary Care Provider] - Diet: Regular Addtl Attending Provider Instructions: 1. Pneumonia/Bacteremia * Please take Amoxicillin 500 mg three times daily to complete a 14 day course -- end date: 08/25/19. 2. Laceration * Please remove sutures from right forehead laceration on 08/18/19. 3. Bladder cancer * Please schedule follow up with oncologist in 1-2 weeks. * Please continue radiation therapy appointments as scheduled. 4. Anemia in setting of chemotherapy/hematuria * Please monitor intermittent labs -- including CBC and BMP. Pending Studies at Discharge: Yes Studies:: Blood cultures 08/11: negative to date. Stand-Alone Forms: [facility] Skilled Items Patient informed of condition?: Yes DNR: Yes Discharge Level of Care: Skilled Communicable Disease: No Discharge Prognosis: Improving Lines: None Urinary Catheter: No Medications and DC Order Prescriptions: New amoxicillin 500 mg Capsule 500 mg PO TID 10 Days Qty: 30 RF: 0 Continued losartan 50 mg tablet 50 mg PO DAILY RF: 0 Boost 0.04 gram- 1 kcal/mL liquid 1 ea PO TIDM RF: 0 acetaminophen [Tylenol] 325 mg capsule 650 mg PO QID MDD 3G PRN (Reason: Fever Or Pain) RF: 0 bisacodyl [Dulcolax (bisacodyl)] 10 mg suppository 10 mg [place] DAILY PRN (Reason: Constipation) RF: 0 gabapentin [Neurontin] 300 mg Capsule 300 mg PO TID RF: 0 Centrum Silver 0.4-300-250 mg-mcg-mcg Tablet 1 tab PO QAM RF: 0 cholecalciferol (vitamin D3) [Vitamin D3] 5,000 unit Tablet 5,000 unit PO QAM RF: 0 omega 3-[id number]-svb-fish oil [Fish Oil] 1,000 mg (120 mg-180 mg) Capsule 1 cap PO BID RF: 0 melatonin 10 mg Tablet 10 mg PO HS RF: 0 ondansetron HCl 4 mg Tablet 4 mg PO Q6H PRN (Reason: Nausea) RF: 0 lidocaine 5 % Adhesive Patch,Medicated 1 patch transdermal QAM Qty: 7 RF: 0 coQ10 (ubiquinol) 100 mg Capsule 100 mg PO DAILY RF: 0 acetaminophen [Tylenol Extra Strength] 500 mg Tablet 500 mg PO BID RF: 0 Discharge Orders: Discharge Order (Routine); Ordered 08/16/19 Ordered By: Nelli Storm Admission Data Admit Date/Time: 08/10/19 20:52 Attending Provider: Aman Norwood Admit Provider: Oc Boss Primary Care Provider: Alanna Payne Other Providers: Oc Boss Other Interventions: Discharge Summary Assessment (RN) Last Done: 08/16/19 16:01 DC Date/Time DO NOT enter until pt leaves facility: 08/16/19 17:46 Supervising Physician Co-Signing Physician Notes Attending note: patient seen and examined with Nelli Storm PA-C. I agree with her discharge summary. I personally reviewed the labs and imaging findings. patient is pleasantly demented, unaware of what is going on medically he is resting comfortably, not in distress discussed case with Dr. Jennings, appreciate her input on using Amoxicillin - Aspiration pneumonia: treated with Zosyn IV while here, responded well breathing well, no fever - Bacteremia, Enterococcus: sensitive to penicillins, treated with Zosyn, change to Amoxicillin on d/c to complete 14 day course Coding Level of Care Code D/C Day Management >30 mins Diagnoses Aspiration pneumonia J69.0 Aspiration pneumonia type: unspecified Laterality: bilateral Lung location: lower lobe of lung Bacteremia R78.81 Metabolic encephalopathy G93.41 Laceration Weakness R53.1 Bladder cancer C67.9 Bladder location: unspecified site GERD (gastroesophageal reflux disease) K21.9 Anemia D64.9 Anemia type: unspecified type Gross hematuria R31.0 HTN (hypertension) I10 Acute CVA (cerebrovascular accident) I63.9 Right carotid artery occlusion I65.21
[2019-08-16] MEDS ORDERED: AMOXICILLIN 500 MG CAP PO SCH (16:00)
[2019-08-16 16:03] VITALS: BP 145/67
== END 2019-08-16 17:46 | DRG 177 ==
LOC: ED 15:55 → 2W 20:52 → SUATTDRO 20:52 → 2W 22:30 → 4W 08-12 22:10